=== PATIENT | female | born 1970 | race Caucasian/White ===

== ENCOUNTER → 2018-06-06 08:41 | Outpatient (CLI) | payer OTHER, SELFPAY ==
[2018-06-06 09:44] LABS: Add Manual Diff / Slide Review NO; Basophils Percent Auto 0.2 % (0-2); Eosinophils Percent Auto 1.5 % (2-4); Hematocrit 41.1 % (36-46); Hemoglobin 13.9 g/dL (12.0-16.0); Lymphocytes Percent Auto 24.7 % (25-40); Mean Corpuscular HGB Conc 33.8 % (30-36); Mean Corpuscular Hemoglobin 31.5 PG (26-34); Mean Corpuscular Volume 92.9 fL (80-100); Monocytes Percent Auto 9.7 % (3-14); Neutrophils Absolute Auto 4700 /uL (3000-5900); Neutrophils Percent Auto 63.9 % (50-75); Platelet Count 281 X10^3/uL (150-400); Red Blood Cell Count 4.42 X10^6/uL (4.0-5.2); Red Cell Distribution Width 14.4 % (11.6-14.8); White Blood Cell Count 7.3 X10^3/uL (4.5-11.0)
[2018-06-06 10:13] LABS: Cholesterol 198 mg/dL (140-199); HDL Cholesterol 46 mg/dL (40-60); LDL Cholesterol Calculated 122 mg/dL (<100); Triglycerides 148 mg/dL (35-150)
[2018-06-06 10:44] LABS: Thyroid Stimulating Hormone 1.27 uIU/mL (0.47-4.68)
== END ==
PROVIDERS: PCP Family Medicine; Visit Provider Family Medicine
DX: Z13.220 Encounter for screening for lipoid disorders (principal); Z51.81 Encounter for therapeutic drug level monitoring
CPT/HCPCS: 36415; 80061; 84443; 85025

== ENCOUNTER → 2019-01-26 06:49 | Outpatient (CLI) | payer OTHER, SELFPAY ==
[2019-01-26 08:51] LABS: Appearance Urine UA CLEAR; Bilirubin Urine UA NEGATIVE (NEGATIVE); Color Urine UA YELLOW; Glucose Urine UA NEGATIVE (Negative); Ketones Urine UA NEGATIVE (NEGATIVE); Leukocyte Esterase Urine UA NEGATIVE (NEGATIVE); Nitrite Urine UA NEGATIVE (Negative); Occult Blood Urine UA TRACE-LYSED (Negative); Protein Urine UA NEGATIVE (Negative); Specific Gravity Urine UA 1.025 (1.000-1.035); Urobilinogen Urine UA 0.2 E.U./dL (0.2)
[2019-01-26 08:52] LABS: Add Manual Diff / Slide Review NO; Basophils Absolute Auto 0 /uL (0-100); Basophils Percent Auto 0.2 % (0-2); Eosinophils Absolute Auto 100 /uL (0-450); Hematocrit 40.9 % (36-46); Hemoglobin 13.8 g/dL (12.0-16.0); Lymphocytes Absolute Auto 2600 /uL (1100-4500); Lymphocytes Percent Auto 30.6 % (25-40); Mean Corpuscular HGB Conc 33.7 % (30-36); Monocytes Absolute Auto 900 /uL (0-900); Monocytes Percent Auto 10.2 % (3-14); Neutrophils Absolute Auto 4900 /uL (1500-7000); Platelet Count 240 X10^3/uL (150-400); Red Blood Cell Count 4.45 X10^6/uL (4.0-5.2); Red Cell Distribution Width 14.3 % (11.6-14.8); White Blood Cell Count 8.5 X10^3/uL (4.5-11.0)
[2019-01-26 09:11] LABS: Alanine Aminotransferase 28 IU/L (9-52); Albumin 4.4 g/dL (3.5-5.0); Albumin Globulin Ratio 1.4 (1.0-2.8); Alkaline Phosphatase 58 U/L (38-126); Aspartate Aminotransferase 18 IU/L (14-36); Bilirubin Total 0.5 mg/dL (0.2-1.3); Blood Urea Nitrogen 12 mg/dL (7-17); Calcium 9.1 mg/dL (8.4-10.2); Carbon Dioxide 25 mmol/L (22-32); Chloride 101 mmol/L (98-107); Cholesterol 204 mg/dL (140-199); Estimated Glomerular Filt Rate > 60.0 mL/min (>60); Globulin 3.1 g/dL (1.7-4.1); Glucose 98 mg/dL (70-100); HDL Cholesterol 40 mg/dL (40-60); HEMOLYSIS 18 (0-50); LDL Cholesterol Calculated 136 mg/dL (<100); Potassium 3.8 mmol/L (3.4-5.1); Sodium 137 mmol/L (137-145); Total Protein 7.5 g/dL (6.3-8.2); Triglycerides 142 mg/dL (35-150)
[2019-01-26 09:37] LABS: Thyroid Stimulating Hormone 2.57 uIU/mL (0.47-4.68)
== END ==
PROVIDERS: PCP Family Medicine; Visit Provider Family Medicine
DX: G25.81 Restless legs syndrome (principal); K21.9 Gastro-esophageal reflux disease without esophagitis; Z51.81 Encounter for therapeutic drug level monitoring
CPT/HCPCS: 36415; 80053; 80061; 81003; 84443; 85025

== ENCOUNTER → 2019-01-31 08:10 | Outpatient (CLI) | payer OTHER, SELFPAY | PROVIDERS: PCP Family Medicine; Visit Provider Physician Assistant | DX: R68.89 Other general symptoms and signs (principal) | CPT/HCPCS: 87400 ==

== ENCOUNTER → 2019-03-06 11:07 | Outpatient (CLI) | payer OTHER, SELFPAY ==
[2019-03-06 14:48] LABS: Alanine Aminotransferase 25 IU/L (9-52); Albumin 4.2 g/dL (3.5-5.0); Albumin Globulin Ratio 1.6 (1.0-2.8); Alkaline Phosphatase 65 U/L (38-126); Aspartate Aminotransferase 15 IU/L (14-36); Bilirubin Total 0.2 mg/dL (0.2-1.3); Bilirubin Unconjugated 0.2 mg/dL (0.0-1.1); Globulin 2.7 g/dL (1.7-4.1); HEMOLYSIS < 15 (0-50); Total Protein 6.9 g/dL (6.3-8.2)
== END ==
PROVIDERS: PCP Family Medicine; Visit Provider Family Medicine
DX: B35.1 Tinea unguium (principal); Z51.81 Encounter for therapeutic drug level monitoring
CPT/HCPCS: 36415; 80076

== ENCOUNTER 2019-04-04 11:15 | Outpatient (RCR) | payer OTHER, SELFPAY ==
--- NOTE | 2019-03-22 16:58 | PT.OIE ---
Current Diagnoses Pain in left hip (03/22/19) Stiffness of unspecified joint, not elsewhere classified (03/22/19) Muscle weakness (generalized) (03/22/19) Other bursitis of hip, left hip (03/22/19) Past Medical History (Last Reviewed 05/17/18 @ 09:28 by Rylee Reynoso DO) GERD (gastroesophageal reflux disease) (Chronic Unknown) Restless leg syndrome (Chronic Unknown) Provider Visit Care Team Role Provider Type Rylee Reynoso DO Attending Provider Physician Primary Care Provider Specialty: [facility] Practice Address: [address] [place] [address] Email: [email or web address] Physical Therapy Initial Evaluation PT-OP-A Visit Information Start: 03/22/19 16:28 Freq: Status: Active Protocol: Document 03/22/19 12:00 DCW (Rec: 03/22/19 16:57 DCW [id number]) Out-Patient Physical Therapy Visit Information Visit Information Visit Type Initial Evaluation Visit Start Time 12:00 Visit Stop Time 12:45 Total Visit Minutes 45 Visit Number 1 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 Pt reports that her pain has been worsening, especially over the last six months. Pt reports she works at the [email or web address], and has to stand for the majority of her 8 hour shift. Pt notes that after >5 hours, she is in severe pain and has difficulty moving after work. Pt also notes that actions such as standing up out of a chair following a movie is difficult. Pt reports she frequently visits a chiropractor, which seems to help for an hour or two, but then her pain returns. Treatment Goals Patient/Caregiver Goals I want to not have pain, but also my doctor said I needed to do therapy before I could have an MRI. Prior Functional Status Baseline Function- ADL's Independent Baseline Function- Mobility Independent Current Functional Impairments (Reported) Functional Limitations- Work/School Pain limits pt from standing at work >5 hours Functional Limitations- Recreation/ Difficulty going to movies Hobbies because she struggles to get out of the chair afterward. PT-OP-C Subjective Start: 03/22/19 16:28 Freq: Status: Active Protocol: Document 03/22/19 12:00 DCW (Rec: 03/22/19 16:57 DCW [id number]) OP-PT Subjective Patient Comments Patient Comments It seems like it has been getting worse over the past six months. Patient Reported Progress Worse Patient Questionnaires Lower Extremity Functional Scale LEFS Score 38/80 = 47.5% LEFS Impairment 40 to 59% Impaired (Score 32- 47) OP-PT Pain Assessment Pain Assessment Grid Paper Pain Assessment Grid Completed Yes Location Left Lateral Hip Intensity 7 Scale Used Numeric (1 - 10) Description Sharp Stabbing PT-OP-F Manual Assessment Start: 03/22/19 16:28 Freq: Status: Active Protocol: Document 03/22/19 12:00 DCW (Rec: 03/22/19 16:57 DCW [id number]) Manual Assessments Soft Tissue Assessment Soft Tissue Mobility Assessment Point specific tenderness to palpation 3/4 = Wincing and withdraw at lateral hip/GT bursae Tenderness to palpation 2/4 = Pain with wincing along entire length of ITB Moderate tone in left QL Joint Mobility Assessment Joint Mobility Assessment Lumbar vertebrae L1-5 moderate -severe hypomobility with P->A mobilization PT-OP-L Special Tests Start: 03/22/19 16:28 Freq: Status: Active Protocol: Document 03/22/19 12:00 DCW (Rec: 03/22/19 16:57 DCW [id number]) Special Tests Lumbar Spine Special Tests Standing Flexion Test Results All movement through hips Straight Leg Raise Test Results Limited secondary to HS tightness Comments 48? right, 34? left Compression Test Results Negative Slump Test Results Negative Hip Special Tests Piriformis Test Results Mild tightness/tenderness NAILA Test Results Positive L lateral hip pain Knee Special Tests Chio's Test Test Results Positive L PT-OP-M Strength Start: 03/22/19 16:28 Freq: Status: Active Protocol: Document 03/22/19 12:00 DCW (Rec: 03/22/19 16:57 [facility] [id number]) Hip Strength Hip Manual Muscle Testing Right Flexion (L2) 4+ Good+ Abduction 4 Good Adduction 4 Good External Rotation 4+ Good+ Internal Rotation 4+ Good+ Left Flexion (L2) 4+ Good+ Abduction 4- Good- Adduction 4 Good External Rotation 4+ Good+ Internal Rotation 4+ Good+ Knee Strength Knee Manual Muscle Testing Right Flexion (S2) 5 Normal Extension (L3) 5 Normal Left Flexion (S2) 4- Good- Extension (L3) 5 Normal PT-OP-Q Treatments Start: 03/22/19 16:28 Freq: Status: Active Protocol: Document 03/22/19 12:00 DCW (Rec: 03/22/19 16:57 [facility] [id number]) Therapeutic Exercises Sidelying Exercises Clamshell Sidelying Exercise Name Clamshell Side left Hip Abduction Sidelying Exercise Name Hip Abduction Side left Resistance 0# Sitting Exercises Lumbar flexion Sitting Exercise Name Seated lumbar flexion Comments focus on flexion of spine, not hips PT-OP-T Assessment and Plan Start: 03/22/19 16:28 Freq: Status: Active Protocol: Document 03/22/19 12:00 DCW (Rec: 03/22/19 16:57 [facility] [id number]) Physical Therapy Assessment Rehab Potential Rehabilitation Potential Good Evaluation Complexity Number of Personal Factors/Comorbidities 1-2 Number of Body Systems Impaired 3 Clinical Presentation at Evaluation Evolving Impairments Impairments Functional Activities Pain Posture ROM Soft Tissue Mobility Strength Tone Goals Four Impairment Hypomobility throughout lumbar vertebrae Skilled Nursing Goal (LTG) Pt lumbar vertebrae to exhibit WNL mobility with P->A mobilization LTG Duration 05/22/19 Three Impairment Hip weakness [employer] 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 Pt exhibits weakness in her left LE, especially left abduction, adduction, and knee flexion. Pt would likely benefit from LE strengthening to improve standing tolerance at work, manual therapy to decrease tone in her hip and low back, and modalities including ultrasound and Iontophoresis / c Dexamethasone to decrease inflammation. Physical Therapy Plan Frequency and Duration Frequency of Treatment 1x/Week Duration of Treatment 8 weeks Plan of Care Start Date 03/22/19 Plan of Care End Date 05/17/19 Therapeutic Interventions Therapeutic Interventions Aquatic Therapy Home Exercise Program Joint Mobilizations Manual Therapy Neuromuscular Re-education Patient/Caregiver Education Self-Care/Home Management Soft Tissue Mobilization Therapeutic Activities Therapeutic Exercises Modalities Cold Pack/Ice Massage Electric Stimulation Hot Packs Iontophoresis Ultrasound Other Therapeutic Interventions Iontophoresis /c Dexamethasone , 4 mg/mL Next Visit Focus/Plan Next Note Type Treatment Note Next Visit Plan STM, Hip strengthening, US, Ionto
--- NOTE | 2019-03-22 16:58 | PT.OPPOC ---
Current Diagnoses Pain in left hip (03/22/19) Stiffness of unspecified joint, not elsewhere classified (03/22/19) Muscle weakness (generalized) (03/22/19) Other bursitis of hip, left hip (03/22/19) Provider Visit Care Team Role Provider Type Rylee Reynoso DO Attending Provider Physician Primary Care Provider Specialty: Family Practice Address: [address] [place] [address], [facility] Email: [email or web address] Plan Of Care PT-OP-T Assessment and Plan Start: 03/22/19 16:28 Freq: Status: Active Protocol: Document 03/22/19 12:00 DCW (Rec: 03/22/19 16:57 DCW [id number]) Physical Therapy Assessment Rehab Potential Rehabilitation Potential Good Evaluation Complexity Number of Personal Factors/Comorbidities 1-2 Number of Body Systems Impaired 3 Clinical Presentation at Evaluation Evolving Impairments Impairments Functional Activities Pain Posture ROM Soft Tissue Mobility Strength Tone Goals Four Impairment Hypomobility throughout lumbar vertebrae Public Relations Director Goal (LTG) Pt lumbar vertebrae to exhibit WNL mobility with P->A mobilization LTG Duration 05/22/19 Three Impairment Hip weakness Public Relations Director Goal (LTG) left LE MMT to at least 4+/5 LTG Duration 05/22/19 Two Impairment Pt experiences pain at work after standing >5 hours Public Relations Director Goal (LTG) Pt to tolerate full 8 hours shift with no increased left hip pain LTG Duration 05/22/19 One Impairment Pt does not have an appropriate home exercise program Short Term Goal (STG) Pt to be independent and compliant with an appropriate HEP STG Duration 04/21/19 Assessment Summary Assessment Pt presents with signs and symptoms of ITB syndrome, GT bursitis, QL tightness, and lumbar hypomobility. Pt exhibits weakness in her left LE, especially left abduction, adduction, and knee flexion. Pt would likely benefit from LE strengthening to improve standing tolerance at work, manual therapy to decrease tone in her hip and low back, and modalities including ultrasound and Iontophoresis / c Dexamethasone to decrease inflammation. Physical Therapy Plan Frequency and Duration Frequency of Treatment 1x/Week Duration of Treatment 8 weeks Plan of Care Start Date 03/22/19 Plan of Care End Date 05/17/19 Therapeutic Interventions Therapeutic Interventions Aquatic Therapy Home Exercise Program Joint Mobilizations Manual Therapy Neuromuscular Re-education Patient/Caregiver Education Self-Care/Home Management Soft Tissue Mobilization Therapeutic Activities Therapeutic Exercises Modalities Cold Pack/Ice Massage Electric Stimulation Hot Packs Iontophoresis Ultrasound Other Therapeutic Interventions Iontophoresis /c Dexamethasone , 4 mg/mL Next Visit Focus/Plan Next Note Type Treatment Note Next Visit Plan STM, Hip strengthening, US, Ionto Plan of Care Dates Plan of Care Start Date 03/22/19 Plan of Care End Date 05/17/19 Please Sign and Return: I have reviewed this Plan of Care and certify that the skilled therapy services above are required to meet the patient?s needs. Physician Signature Date Printed Name and Credentials Clinical Instructor Signature Printed Name and Credentials
--- NOTE | 2019-03-26 12:44 | PT.OTN ---
Current Diagnoses Pain in left hip (03/26/19) Physical Therapy Treatment Note PT-OP-A Visit Information Start: 03/22/19 16:28 Freq: Status: Active Protocol: Document 03/26/19 12:00 DCW (Rec: 03/26/19 12:44 DCW [id number]) Out-Patient Physical Therapy Visit Information Visit Information Visit Type Treatment Note Visit Start Time 12:00 Visit Stop Time 12:45 Total Visit Minutes 45 Visit Number 2 Number of PAI GOW DEALER Visits 0 Evaluation Information Evaluation Date 03/22/19 PT-OP-B Current Condition Start: 03/22/19 16:28 Freq: Status: Active Protocol: Document 03/22/19 12:00 DCW (Rec: 03/22/19 16:57 DCW [id number]) Current Condition History of Current Condition Onset Date 3 years Current Complaints worsening left hip and low back pain, muscle tweaks History of Current Condition Pt is a 49 year old female presenting with a three year history of left lateral hip and low back pain. Pt reports that her pain has been worsening, especially over the last six months. Pt reports she works at the [employer], and has to stand for the majority of her 8 hour shift. Pt notes that after >5 hours, she is in severe pain and has difficulty moving after work. Pt also notes that actions such as standing up out of a chair following a movie is difficult. Pt reports she frequently visits a chiropractor, which seems to help for an hour or two, but then her pain returns. Treatment Goals Patient/Caregiver Goals I want to not have pain, but also my doctor said I needed to do therapy before I could have an MRI. Prior Functional Status Baseline Function- ADL's Independent Baseline Function- Mobility Independent Current Functional Impairments (Reported) Functional Limitations- Work/School Pain limits pt from standing at work >5 hours Functional Limitations- Recreation/ Difficulty going to movies Hobbies because she struggles to get out of the chair afterward. PT-OP-C Subjective Start: 03/22/19 16:28 Freq: Status: Active Protocol: Document 03/26/19 12:00 DCW (Rec: 03/26/19 12:44 DCW [id number]) OP-PT Subjective Patient Comments Patient Comments After I saw you, it actually started to hurt a little less, but then last night at work, it just 'boom,' came back and hit me hard, I couldn't even bend over to pick anything up. PT-OP-F Manual Assessment Start: 03/22/19 16:28 Freq: Status: Active Protocol: Document 03/22/19 12:00 DCW (Rec: 03/22/19 16:57 DCW [id number]) Manual Assessments Soft Tissue Assessment Soft Tissue Mobility Assessment Point specific tenderness to palpation 3/4 = Wincing and withdraw at lateral hip/GT bursae Tenderness to palpation 2/4 = Pain with wincing along entire length of ITB Moderate tone in left QL Joint Mobility Assessment Joint Mobility Assessment Lumbar vertebrae L1-5 moderate -severe hypomobility with P->A mobilization PT-OP-L Special Tests Start: 03/22/19 16:28 Freq: Status: Active Protocol: Document 03/22/19 12:00 DCW (Rec: 03/22/19 16:57 DCW [id number]) Special Tests Lumbar Spine Special Tests Standing Flexion Test Results All movement through hips Straight Leg Raise Test Results Limited secondary to HS tightness Comments 48? right, 34? left Compression Test Results Negative Slump Test Results Negative Hip Special Tests Piriformis Test Results Mild tightness/tenderness NAILA Test Results Positive L lateral hip pain Knee Special Tests Chio's Test Test Results Positive L PT-OP-M Strength Start: 03/22/19 16:28 Freq: Status: Active Protocol: Document 03/22/19 12:00 DCW (Rec: 03/22/19 16:57 DCW [id number]) Hip Strength Hip Manual Muscle Testing Right Flexion (L2) 4+ Good+ Abduction 4 Good Adduction 4 Good External Rotation 4+ Good+ Internal Rotation 4+ Good+ Left Flexion (L2) 4+ Good+ Abduction 4- Good- Adduction 4 Good External Rotation 4+ Good+ Internal Rotation 4+ Good+ Knee Strength Knee Manual Muscle Testing Right Flexion (S2) 5 Normal Extension (L3) 5 Normal Left Flexion (S2) 4- Good- Extension (L3) 5 Normal PT-OP-Q Treatments Start: 03/22/19 16:28 Freq: Status: Active Protocol: Document 03/26/19 12:00 DCW (Rec: 03/26/19 12:44 DCW [id number]) Cardio Equipment Recumbent Elliptical (Biodex) Duration (Minutes) 6 Resistance 5 Seat Position 9 Gym Equipment Shuttle Recovery Unilateral Squats Resistance 67# Shuttle Recovery Platform Stable Bilateral Squats Resistance 100# Shuttle Recovery Platform Stable Therapeutic Exercises Other Exercises Resisted Stepping Other Exercise Name Lateral, Forward, Backward Side bilateral Resistance Green Equipment Used T-band Manual Therapy Treatment Soft Tissue Mobilization Piriformis Body Location L Piriformis Mobilization Type Strumming Sustained Pressure Trigger Point Release Body Position Prone Paraspinals Body Location L Lumbar Paraspinals Mobilization Type Strumming Sustained Pressure Trigger Point Release Body Position Prone Quadratus Lumborum Body Location L QL Mobilization Type Strumming Sustained Pressure Trigger Point Release Body Position Prone Joint Mobilizations Lumbar Joint L1-5 Direction P->A Grade III Body Position Prone Manual Traction Lower Extremity Details Long-axis LE Traction Body Position Supine PT-OP-T Assessment and Plan Start: 03/22/19 16:28 Freq: Status: Active Protocol: Document 03/26/19 12:00 DCW (Rec: 03/26/19 12:44 DCW [id number]) Physical Therapy Assessment Impairments Impairments Functional Activities Pain Posture ROM Soft Tissue Mobility Strength Tone Goals Four Impairment Hypomobility throughout lumbar vertebrae Halfway Goal (LTG) Pt lumbar vertebrae to exhibit WNL mobility with P->A mobilization LTG Duration 05/22/19 Three Impairment Hip weakness Halfway Goal (LTG) left LE MMT to at least 4+/5 LTG Duration 05/22/19 Two Impairment Pt experiences pain at work after standing >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 Physical Therapy Plan Frequency and Duration Frequency of Treatment 1x/Week Duration of Treatment 8 weeks Plan of Care Start Date 03/22/19 Plan of Care End Date 05/17/19 Therapeutic Interventions Therapeutic Interventions Aquatic Therapy Home Exercise Program Joint Mobilizations Manual Therapy Neuromuscular Re-education Patient/Caregiver Education Self-Care/Home Management Soft Tissue Mobilization Therapeutic Activities Therapeutic Exercises Modalities Cold Pack/Ice Massage Electric Stimulation Hot Packs Iontophoresis Ultrasound Other Therapeutic Interventions Iontophoresis /c Dexamethasone , 4 mg/mL Next Visit Focus/Plan Next Note Type Treatment Note Next Visit Plan STM, Hip strengthening, US, Ionto
--- NOTE | 2019-04-04 11:57 | PT.OTN ---
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 Pt reports that her pain has been worsening, especially over the last six months. Pt reports she works at the [employer], and has to stand for the majority of her 8 hour shift. Pt notes that after >5 hours, she is in severe pain and has difficulty moving after work. Pt also notes that actions such as standing up out of a chair following a movie is difficult. Pt reports she frequently visits a chiropractor, which seems to help for an hour or two, but then her pain returns. Treatment Goals Patient/Caregiver Goals I want to not have pain, but also my doctor said I needed to do therapy before I could have an MRI. Prior Functional Status Baseline Function- ADL's Independent Baseline Function- Mobility Independent Current Functional Impairments (Reported) Functional Limitations- Work/School Pain limits pt from standing at work >5 hours Functional Limitations- Recreation/ Difficulty going to movies Hobbies because she struggles to get out of the chair afterward. PT-OP-C Subjective Start: 03/22/19 16:28 Freq: Status: Active Protocol: Document 04/04/19 11:15 DCW (Rec: 04/04/19 11:55 DCW [id number]) OP-PT Subjective Patient Comments Patient Comments Pt reports that by evening time following her last visit, she was fairly sore again. She is hoping to set up her MRI soon. PT-OP-F Manual Assessment Start: 03/22/19 16:28 Freq: Status: Active Protocol: Document 03/22/19 12:00 DCW (Rec: 03/22/19 16:57 DCW [id number]) Manual Assessments Soft Tissue Assessment Soft Tissue Mobility Assessment Point specific tenderness to palpation 3/4 = Wincing and withdraw at lateral hip/GT bursae Tenderness to palpation 2/4 = Pain with wincing along entire length of ITB Moderate tone in left QL Joint Mobility Assessment Joint Mobility Assessment Lumbar vertebrae L1-5 moderate -severe hypomobility with P->A mobilization PT-OP-L Special Tests Start: 03/22/19 16:28 Freq: Status: Active Protocol: Document 03/22/19 12:00 DCW (Rec: 03/22/19 16:57 DCW [id number]) Special Tests Lumbar Spine Special Tests Standing Flexion Test Results All movement through hips Straight Leg Raise Test Results Limited secondary to HS tightness Comments 48? right, 34? left Compression Test Results Negative Slump Test Results Negative Hip Special Tests Piriformis Test Results Mild tightness/tenderness NAILA Test Results Positive L lateral hip pain Knee Special Tests Chio's Test Test Results Positive L PT-OP-M Strength Start: 03/22/19 16:28 Freq: Status: Active Protocol: Document 03/22/19 12:00 DCW (Rec: 03/22/19 16:57 DCW [id number]) Hip Strength Hip Manual Muscle Testing Right Flexion (L2) 4+ Good+ Abduction 4 Good Adduction 4 Good External Rotation 4+ Good+ Internal Rotation 4+ Good+ Left Flexion (L2) 4+ Good+ Abduction 4- Good- Adduction 4 Good External Rotation 4+ Good+ Internal Rotation 4+ Good+ Knee Strength Knee Manual Muscle Testing Right Flexion (S2) 5 Normal Extension (L3) 5 Normal Left Flexion (S2) 4- Good- Extension (L3) 5 Normal PT-OP-Q Treatments Start: 03/22/19 16:28 Freq: Status: Active Protocol: Document 04/04/19 11:15 DCW (Rec: 04/04/19 11:55 DCW [id number]) Cardio Equipment Recumbent Elliptical (Biodex) Duration (Minutes) 6 Resistance 5 Seat Position 9 Gym Equipment Shuttle Recovery Unilateral Squats Resistance 67# Shuttle Recovery Platform Stable Bilateral Squats Resistance 100# Shuttle Recovery Platform Stable Therapeutic Exercises Supine Exercises Piriformis Stretch Supine Exercise Name Figure-4, Zjxb-py-boarorfh shoulder Side bilateral Comments Manual Hamstring Stretch Supine Exercise Name HS Stretch Side bilateral Comments Manual Manual Therapy Treatment Soft Tissue Mobilization Piriformis Body Location L Piriformis Mobilization Type Strumming Sustained Pressure Trigger Point Release Body Position Prone Paraspinals Body Location L Lumbar Paraspinals Mobilization Type Strumming Sustained Pressure Trigger Point Release Body Position Prone Quadratus Lumborum Body Location L QL Mobilization Type Strumming Sustained Pressure Trigger Point Release Body Position Prone Joint Mobilizations Lumbar Joint L1-5 Direction P->A Grade III Body Position Prone Manual Traction Lower Extremity Details Long-axis LE Traction Body Position Supine PT-OP-R Modalities Start: 04/04/19 11:55 Freq: Status: Active Protocol: Document 04/04/19 11:15 DCW (Rec: 04/04/19 11:56 DCW [id number]) Iontophoresis Treatment Left GT Bursae Treatment Medication Dexamethasone (-) Medication Amount (mL) (ml) 1.0 Medication Dosage 4 mg/mL Treatment Polarity Negative to Negative PT-OP-T Assessment and Plan Start: 03/22/19 16:28 Freq: Status: Active Protocol: Document 04/04/19 11:15 DCW (Rec: 04/04/19 11:55 DCW [id number]) Physical Therapy Assessment Impairments Impairments Functional Activities Pain Posture ROM Soft Tissue Mobility Strength Tone Goals Four Impairment Hypomobility throughout lumbar vertebrae [employer] Goal (LTG) Pt lumbar vertebrae to exhibit WNL mobility with P->A mobilization LTG Duration 05/22/19 Three Impairment Hip weakness Nursing Home Goal (LTG) left LE MMT to at least 4+/5 LTG Duration 05/22/19 Two Impairment Pt experiences pain at work after standing >5 hours Nursing Home Goal (LTG) Pt to tolerate full 8 hours shift with no increased left hip pain LTG Duration 05/22/19 One Impairment Pt does not have an appropriate home exercise program Short Term Goal (STG) Pt to be independent and compliant with an appropriate HEP STG Duration 04/21/19 Assessment Summary Assessment Trial of Ionto today,assess next visit. Pt appeared to experience increased tenderness today during piriformis STM. Physical Therapy Plan Frequency and Duration Frequency of Treatment 1x/Week Duration of Treatment 8 weeks Plan of Care Start Date 03/22/19 Plan of Care End Date 05/17/19 Therapeutic Interventions Therapeutic Interventions Aquatic Therapy Home Exercise Program Joint Mobilizations Manual Therapy Neuromuscular Re-education Patient/Caregiver Education Self-Care/Home Management Soft Tissue Mobilization Therapeutic Activities Therapeutic Exercises Modalities Cold Pack/Ice Massage Electric Stimulation Hot Packs Iontophoresis Ultrasound Other Therapeutic Interventions Iontophoresis /c Dexamethasone , 4 mg/mL Next Visit Focus/Plan Next Note Type Treatment Note Next Visit Plan STM, Hip strengthening, US, Ionto
--- NOTE | 2019-07-18 14:04 | PT.OPDS ---
Current Diagnoses Pain in left hip (04/04/19) Provider Visit Care Team Role Provider Type Rylee Reynoso DO Attending Provider Physician Primary Care Provider Specialty: [facility] Address: [address] [place] [address], [address], [place], [address] Email: [email or web address] Visit Number Visit Number 3 Discharge Summary PT-OP-B Current Condition Start: 03/22/19 16:28 Freq: Status: Active Protocol: Document 03/22/19 12:00 DCW (Rec: 03/22/19 16:57 DCW [id number]) Current Condition History of Current Condition Onset Date 3 years Current Complaints worsening left hip and low back pain, muscle tweaks History of Current Condition Pt is a 49 year old female presenting with a three year history of left lateral hip and low back pain. Pt reports that her pain has been worsening, especially over the last six months. Pt reports she works at the [employer], and has to stand for the majority of her 8 hour shift. Pt notes that after >5 hours, she is in severe pain and has difficulty moving after work. Pt also notes that actions such as standing up out of a chair following a movie is difficult. Pt reports she frequently visits a chiropractor, which seems to help for an hour or two, but then her pain returns. Treatment Goals Patient/Caregiver Goals I want to not have pain, but also my doctor said I needed to do therapy before I could have an MRI. Prior Functional Status Baseline Function- ADL's Independent Baseline Function- Mobility Independent Current Functional Impairments (Reported) Functional Limitations- Work/School Pain limits pt from standing at work >5 hours Functional Limitations- Recreation/ Difficulty going to movies Hobbies because she struggles to get out of the chair afterward. PT-OP-C Subjective Start: 03/22/19 16:28 Freq: Status: Active Protocol: Document 04/04/19 11:15 DCW (Rec: 04/04/19 11:55 DCW [id number]) OP-PT Subjective Patient Comments Patient Comments Pt reports that by evening time following her last visit, she was fairly sore again. She is hoping to set up her MRI soon. PT-OP-F Manual Assessment Start: 03/22/19 16:28 Freq: Status: Active Protocol: Document 03/22/19 12:00 DCW (Rec: 03/22/19 16:57 [facility] [id number]) Manual Assessments Soft Tissue Assessment Soft Tissue Mobility Assessment Point specific tenderness to palpation 3/4 = Wincing and withdraw at lateral hip/GT bursae Tenderness to palpation 2/4 = Pain with wincing along entire length of ITB Moderate tone in left QL Joint Mobility Assessment Joint Mobility Assessment Lumbar vertebrae L1-5 moderate -severe hypomobility with P->A mobilization PT-OP-L Special Tests Start: 03/22/19 16:28 Freq: Status: Active Protocol: Document 03/22/19 12:00 DCW (Rec: 03/22/19 16:57 [facility] [id number]) Special Tests Lumbar Spine Special Tests Standing Flexion Test Results All movement through hips Straight Leg Raise Test Results Limited secondary to HS tightness Comments 48? right, 34? left Compression Test Results Negative Slump Test Results Negative Hip Special Tests Piriformis Test Results Mild tightness/tenderness NAILA Test Results Positive L lateral hip pain Knee Special Tests Chio's Test Test Results Positive L PT-OP-M Strength Start: 03/22/19 16:28 Freq: Status: Active Protocol: Document 03/22/19 12:00 DCW (Rec: 03/22/19 16:57 [facility] [id number]) Hip Strength Hip Manual Muscle Testing Right Flexion (L2) 4+ Good+ Abduction 4 Good Adduction 4 Good External Rotation 4+ Good+ Internal Rotation 4+ Good+ Left Flexion (L2) 4+ Good+ Abduction 4- Good- Adduction 4 Good External Rotation 4+ Good+ Internal Rotation 4+ Good+ Knee Strength Knee Manual Muscle Testing Right Flexion (S2) 5 Normal Extension (L3) 5 Normal Left Flexion (S2) 4- Good- Extension (L3) 5 Normal PT-OP-T Assessment and Plan Start: 03/22/19 16:28 Freq: Status: Active Protocol: Document 07/18/19 14:01 DCW (Rec: 07/18/19 14:04 [facility] [id number]) Physical Therapy Assessment Impairments Impairments Functional Activities Pain Posture ROM Soft Tissue Mobility Strength Tone Goals Four Impairment Hypomobility throughout lumbar vertebrae Custodial Goal (LTG) Pt lumbar vertebrae to exhibit WNL mobility with P->A mobilization LTG Duration 05/22/19 Three Impairment Hip weakness [employer] Goal (LTG) left LE MMT to at least 4+/5 LTG Duration 05/22/19 Two Impairment Pt experiences pain at work after standing >5 hours [employer] Goal (LTG) Pt to tolerate full 8 hours shift with no increased left hip pain LTG Duration 05/22/19 One Impairment Pt does not have an appropriate home exercise program Short Term Goal (STG) Pt to be independent and compliant with an appropriate HEP STG Duration 04/21/19 Assessment Summary Assessment Pt has not been seen in skilled therapy for three months. Pt will be discharged from skilled PT at this time, and will require a new referral in order to return Physical Therapy Plan Frequency and Duration Frequency of Treatment 1x/Week Duration of Treatment 8 weeks Plan of Care Start Date 03/22/19 Plan of Care End Date 05/17/19 Therapeutic Interventions Therapeutic Interventions Aquatic Therapy Home Exercise Program Joint Mobilizations Manual Therapy Neuromuscular Re-education Patient/Caregiver Education Self-Care/Home Management Soft Tissue Mobilization Therapeutic Activities Therapeutic Exercises Modalities Cold Pack/Ice Massage Electric Stimulation Hot Packs Iontophoresis Ultrasound Other Therapeutic Interventions Iontophoresis /c Dexamethasone , 4 mg/mL Next Visit Focus/Plan Next Note Type Treatment Note Next Visit Plan STM, Hip strengthening, US, Ionto
== END 2019-07-20 10:05 | disposition home or self-care (01) ==
LOC: PHYS 11:15
PROVIDERS: PCP Family Medicine; Visit Provider Family Medicine
DX: M25.552 Pain in left hip (principal)
CPT/HCPCS: 97110; 97140; 97162

== ENCOUNTER → 2019-04-10 10:05 | Outpatient (CLI) | payer OTHER, SELFPAY ==
--- NOTE | 2019-04-10 10:08 | DI.RAD.S_ITS ---
PROCEDURE: XR HIP W PEL IF DONE LT 2V INDICATIONS: L hip pain TECHNIQUE: AP pelvis with lateral view(s) of the left hip(s). COMPARISON: None. FINDINGS: Bones: No fractures or dislocations. Pelvic ring appears intact. No suspicious bony lesions. Lower lumbar spondylosis. Hip joint space is grossly preserved. Scattered degenerative subchondral sclerosis and spurring. Soft tissues: The visualized bowel gas pattern is normal. No suspicious soft tissue calcifications. IMPRESSION: Mild bilateral hip joint degeneration Dictated by: Mikael Sun M.D. on 04/10/2019 at 13:00 Approved by: Mikael Sun M.D. on 04/10/2019 at 13:03
[2019-04-10 10:48] LABS: Add Manual Diff / Slide Review NO; Basophils Absolute Auto 0 /uL (0-100); Basophils Percent Auto 0.3 % (0-2); Eosinophils Absolute Auto 100 /uL (0-450); Eosinophils Percent Auto 0.9 % (2-4); Hematocrit 39.2 % (36-46); Hemoglobin 13.1 g/dL (12.0-16.0); Lymphocytes Absolute Auto 1400 /uL (1100-4500); Lymphocytes Percent Auto 17.7 % (25-40); Mean Corpuscular HGB Conc 33.5 % (30-36); Mean Corpuscular Hemoglobin 30.3 PG (26-34); Mean Corpuscular Volume 90.6 fL (80-100); Monocytes Absolute Auto 800 /uL (0-900); Monocytes Percent Auto 9.8 % (3-14); Neutrophils Absolute Auto 5600 /uL (1500-7000); Neutrophils Percent Auto 71.3 % (50-75); Platelet Count 250 X10^3/uL (150-400); Red Blood Cell Count 4.33 X10^6/uL (4.0-5.2); Red Cell Distribution Width 15.3 % (11.6-14.8); White Blood Cell Count 7.8 X10^3/uL (4.5-11.0)
[2019-04-10 11:32] LABS: Erythrocyte Sedimentation Rate 16 MM/HR (0-20)
[2019-04-12 17:43] LABS: HLA B27 NEGATIVE (Negative)
[2019-04-12 19:55] LABS: ANA Pattern Speckled; ANA Screen, IFA Positive (Negative); ANA Titer 1:40 titer (<1:40)
== END ==
PROVIDERS: PCP Family Medicine; Visit Provider Family Medicine
DX: M25.552 Pain in left hip (principal); M16.0 Bilateral primary osteoarthritis of hip; B35.1 Tinea unguium; M54.16 Radiculopathy, lumbar region
CPT/HCPCS: 36415; 73502; 85025; 85651; 86038; 86812

== ENCOUNTER → 2019-04-27 06:00 | Outpatient (CLI) | payer OTHER, SELFPAY ==
--- NOTE | 2019-04-27 06:03 | DI.MRI.S_ITS ---
PROCEDURE: MR LUMBAR SPINE WO CON INDICATIONS: L Hip pain, Lumbar radiculopathy TECHNIQUE: Noncontrast sagittal T1 spin echo and T2 fast echo, sagittal STIR, axial T1 and T2 fast spin echo through the lumbar spine. In cases with scoliosis, additional coronal T2 fast spin echo may be performed. COMPARISON: None. FINDINGS: Image quality: Excellent. Alignment and Curvature: There is normal bony alignment. Bone Marrow: Marrow is of normal overall signal. No acute vertebral body compression fractures. Spinal Cord: Conus medullaris terminates at the L1 level. Visualized cord demonstrates normal signal and size. Paraspinous Soft Tissues: No paravertebral masses. L1-L2: Normal appearance. L2-L3: Normal appearance except for a slight degree of degenerative disc I. reduction and desiccation and mild facet osteoarthritis.. L3-L4: The degenerative disc disease is minimal, no disc bulge or herniation is seen. Only a slight degree of facet osteoarthritis can be found. L4-L5: Minimal degenerative disc disease, mild to moderate facet osteoarthritis is greater on the left than the right with resultant mild narrowing of the neural foramen on the left to the degree that impingement on the course of the left L4 nerve root may be present. L5-S1: No degenerative disc disease, minimal facet osteoarthritis on the left. No definite nerve root impingement found.. IMPRESSION: There is only a mild degree of degenerative change along the lumbosacral spine best seen at the left-sided neural foramen at L4-5. No prior trauma is seen, no disc herniation is present. There is potential for mild impingement on the course of the left L4 nerve root. Dictated by: Sixto Barclay M.D. on 04/27/2019 at 13:23 Approved by: Sixto Barclay M.D. on 04/27/2019 at 13:26
--- NOTE | 2019-04-27 06:03 | DI.MRI.S_ITS ---
PROCEDURE: MR HIP LT WO CON INDICATIONS: L Hip pain, Lumbar radiculopathy TECHNIQUE: Noncontrast coronal T1 spin echo and STIR through the bony pelvis. Coronal and axial T2 fast spin echo with fat saturation, sagittal T1 spin echo, and oblique axial T2 fast spin echo with fat saturation through the hip. COMPARISON: [facility], MR, MR LUMBAR SPINE WO CON, 04/27/2019, 6:36. FINDINGS: Image quality: Excellent. Bones and joints: Bone marrow of the pelvic ring and proximal femurs show normal signal throughout. No intraosseous lesions or fractures. No avascular necrosis of the femoral heads. The visualized lower lumbar spine appears normally aligned. Tendons and ligaments: The gluteus medius and minimus tendons appear intact, without associated muscle atrophy. The nearby proximal iliotibial band also appears intact. The iliopsoas tendon appears intact, without adjacent bursal fluid collections or evidence for impingement syndrome. The origin of the hamstring tendon is intact at the ischial tuberosity, as well as the associated sacrotuberous ligament. The straight and reflected heads of the rectus femoris muscle origin appear intact, as well as the conjoint tendon. The ligamentum teres appears intact where visualized. Labrum and cartilage: The acetabular labrum appears intact in the absence of intra-articular contrast. Cartilage surface of the femoral head appears of normal thickness. The alpha angle of the femur is within normal limits at less than 55 degrees. Soft tissues: Visualized muscles demonstrate normal bulk and internal signal. Quadratus femoris muscle demonstrates no internal edema to suggest ischiofemoral impingement. The proximal sciatic neurovascular bundle appears normal adjacent to the hamstring tendons. No free pelvic fluid. Bladder wall thickness is normal. The uterus is only partially visualized but appears retroverted and leftward deviated against the lumbar plexus on the left. The morphology of the myometrium and endometrial lining is indistinct, and the appearance is suggestive of presence of at least 2 moderate sized uterine fibroids in the small portion of the uterus included on this study to the left of midline. An adnexal mass suggestive of ovarian neoplasm is not seen. Bowel structures and small bowel loops appear normal where visualized. IMPRESSION: The uterus is only partially included on this study and it appears leftward deviated posteriorly to do abut the left lateral pelvic sidewall in the area of the lumbosacral plexus. Impingement on this area may explain left-sided symptomatology. Only a portion of the pelvis is visualized, the endometrial lining is indistinct. Pelvic ultrasound is recommended in this patient who presumably is post menopausal. There is a small degree of thinning of the joint interspace bilaterally, symmetric. The symmetry of degenerative change further argues towards possible left-sided lumbosacral plexus impingement if the symptomatology is predominantly left-sided. Dictated by: Sixto Barclay M.D. on 04/27/2019 at 13:26 Approved by: Sixto Barclay M.D. on 04/27/2019 at 13:34
== END ==
PROVIDERS: PCP Family Medicine; Visit Provider Family Medicine
DX: M25.552 Pain in left hip (principal); M47.27 Other spondylosis with radiculopathy, lumbosacral region
CPT/HCPCS: 72148; 73721

== ENCOUNTER → 2019-05-02 10:40 | Outpatient (CLI) | payer OTHER, SELFPAY ==
--- NOTE | 2019-05-02 10:44 | DI.US.S_ITS ---
PROCEDURE: US PELVIC COMPLETE INDICATIONS: EVALUATE UTERUS; KNOWN FIBROIDS TECHNIQUE: Real-time scanning was performed of the pelvic organs, with image documentation. Additional endovaginal scanning was necessary due to incomplete visualization of the adnexal and endometrial structures by transabdominal scanning. COMPARISON: [facility], , PELVIC COMPLETE, 08/15/2017, 8:56. FINDINGS: Transabdominal scanning: Limited scanning through the kidneys shows no hydronephrosis. No pathologic free abdominal or pelvic fluid. Endovaginal scanning: Uterus: Uterus is moderately enlarged in size at 6.2 x 6.2 x 8.1 cm. The endometrium is difficult to accurately assess to multiple uterine fibroids this includes a right sided anterior intramural 4.6 cm fibroid, a midline anterior intramural 4.3 cm fibroid and a left-sided anterior intramural 2.5 cm maximal dimension fibroid. Ovaries: The right ovary is normal at 1.6 x 1.8 x 2.7 cm but the left ovary could not be seen due to bowel gas. IMPRESSION: Nonvisualization of the endometrial lining 2 scattered uterine fibroids, the largest of which measures up to 4.6 x 3.7 x 3.4 cm on the right. Right ovary appears normal, left ovary could not be seen likely due to overlying bowel gas and positioning. Dictated by: Sixto Barclay M.D. on 05/02/2019 at 12:06 Approved by: Sixto Barclay M.D. on 05/02/2019 at 12:09
== END ==
PROVIDERS: PCP Family Medicine; Visit Provider Family Medicine
DX: D25.1 Intramural leiomyoma of uterus (principal)
CPT/HCPCS: 76830; 76856

== ENCOUNTER → 2019-05-18 09:33 | Outpatient (CLI) | payer OTHER, SELFPAY ==
--- NOTE | 2019-05-18 09:34 | DI.MG.S_ITS ---
BILATERAL DIGITAL SCREENING MAMMOGRAM 3D/2D WITH CAD: 05/18/2019 CLINICAL: Routine screening. Comparison is made to exams dated: 10/13/2017 mammogram - [facility] and 09/14/2012 mammogram - [facility]. The tissue of both breasts is heterogeneously dense. This may lower the sensitivity of mammography. Current study was also evaluated with a Computer Aided Detection (CAD) system. No significant masses, calcifications, or other findings are seen in either breast. There has been no significant interval change. IMPRESSION: NEGATIVE There is no mammographic evidence of malignancy. A 1 year screening mammogram is recommended. This exam was interpreted at Station ID: [id number]. NOTE: For mammograms, a report in lay terms will be sent to the patient. Approximately 15% of breast malignancies will not be visualized mammographically. In the management of a palpable breast mass, a negative mammogram must not discourage biopsy of a clinically suspicious lesion. Electronically Signed By: Rodrigo liu/noble:05/18/2019 17:42:23 letter sent: Normal Exam ACR BI-RADS Category 1: Negative [id number]
== END ==
PROVIDERS: PCP Family Medicine; Visit Provider Family Medicine
DX: Z12.31 Encounter for screening mammogram for malignant neoplasm of breast (principal)
CPT/HCPCS: 77063; 77067

== ENCOUNTER → 2019-06-12 13:52 | Outpatient (CLI) | payer OTHER, SELFPAY ==
[2019-06-12 16:31] LABS: BUN Creatinine Ratio 26.7 (6-22); Blood Urea Nitrogen 16 mg/dL (7-17); Calcium 9.6 mg/dL (8.4-10.2); Carbon Dioxide 26 mmol/L (22-32); Chloride 103 mmol/L (98-107); Estimated Glomerular Filt Rate > 60.0 mL/min (>60); Glucose 100 mg/dL (70-100); HEMOLYSIS < 15 (0-50); Potassium 4.4 mmol/L (3.4-5.1); Sodium 139 mmol/L (137-145)
== END ==
PROVIDERS: PCP Family Medicine; Visit Provider Family Medicine
DX: Z51.81 Encounter for therapeutic drug level monitoring (principal)
CPT/HCPCS: 36415; 80048

== ENCOUNTER 2019-08-01 18:56 | Emergency (ER) | payer OTHER, SELFPAY ==
[2019-08-01 19:15] VITALS: BP 129/79; PULSE 80; RESP 18; TEMP 36.6; O2SAT 99; BMI 31.3
[2019-08-01] MEDS: SODIUM CHLORIDE 0.9% 1,000 ML 150 ML IV (20:45)
--- NOTE | 2019-08-01 20:46 | ED.DIZZY ---
HPI - Dizziness General Chief Complaint: Dizziness Stated Complaint: dizziness Time Seen by Provider: 08/01/19 20:00 Source: patient and family Mode of arrival: ambulatory Limitations: no limitations History of Present Illness HPI Narrative: 49-year-old female former smoker presents to the emergency department with her and a chief complaint of vague dizziness over the course of the day. She was working at the [employer] and states that upon standing she felt dizzy few hours ago and the symptoms persist. She denies any focal neurologic symptoms such as blurred vision, trouble with speech nor numbness, tingling or weakness. She denies any recent illness involving fever or chills nor runny nose, sneezing or coughing. She denies ear pain, chest pain or shortness of breath. She states she is dizzy upon standing and improves with rest. She states she has been very stressed lately due to home and work and does not think she has been eating well or drinking enough water. MD complaint: dizziness Onset (ago): hour(s) Timing: gradual onset Description: lightheadedness History of similar episodes: No History of trauma: No Severity: mild Relieving factors: remaining still Exacerbating factors: position Associated symptoms: denies other symptoms Related Data Previous Rx's Medication Instructions Recorded clobetasol 0.05 % scalp solution 0.05 % TOPICAL QHS #50 ml 05/17/18 fluocinolone 0.01 % topical body 118.28 applictn TOPICAL HS #4 oz 05/17/18 oil escitalopram oxalate 20 mg tablet 20 mg PO DAILY #90 tab 04/10/19 cyclobenzaprine 10 mg tablet 10 mg PO BEDTIME #30 tab 07/09/19 gabapentin 300 mg capsule 300 mg PO BEDTIME #90 cap 07/09/19 hydrocodone 10 mg-acetaminophen 1 tab PO QID PRN #120 tab 07/09/19 325 mg tablet Allergies Allergy/AdvReac Type Severity Reaction Status Date / Time No Known Drug Allergies Allergy Verified 07/09/19 09:02 Review of Systems Constitutional Constitutional: Denies chills, Denies fatigue, Denies fever(s), Denies frequent falls, Denies lethargy and Denies weakness Eyes Eyes: Denies change in vision, Denies eye discharge, Denies irritation and Denies loss of vision ENT Ears, Nose, Mouth, and Throat: Denies change in voice, Reports dizziness, Denies neck pain, Denies sore throat and Denies throat swelling Cardiovascular Cardiovascular: Denies chest pain, Denies irregular heart rhythm, Denies lightheadedness, Denies palpitations, Denies dyspnea, Denies dyspnea on exertion and Denies orthopnea Respiratory Respiratory: Denies cough, Denies dyspnea, Denies dyspnea on exertion and Denies wheezing Gastrointestinal Gastrointestinal: Denies abdominal pain, Denies change in bowel habits, Denies diarrhea, Denies nausea and Denies vomiting Genitourinary Genitourinary: Denies hematuria, Denies flank pain, Denies urinary incontinence and Denies urinary urgency Musculoskeletal Musculoskeletal: Denies back pain, Denies muscle weakness, Denies neck pain and Denies tingling Integumentary/Breasts Skin/Breast: Denies pruritus, Denies erythema, Denies rash and Denies wounds Neurologic Neurologic: Denies behavioral changes, Denies confusion, Reports dizziness, Denies frequent falls, Denies loss of vision, Denies tingling and Denies weakness Psychiatric Psychiatric: Denies anxiety, Denies behavioral changes, Denies confusion, Denies depression, Denies homicidal ideation and Denies suicidal ideation Endocrine Endocrine: Denies fatigue, Denies flushing and Denies palpitations Hematologic/Lymphatic Hematologic/Lymphatic: Denies easy bruising Allergic/Immunologic Allergic/Immunologic: Denies urticaria, Denies throat swelling and Denies wheezing [facility] Medical History GERD (gastroesophageal reflux disease) (Chronic Unknown) Restless leg syndrome (Chronic Unknown) Social History Smoking Status: Former smoker Social History Smoking Status: Former smoker Exam Narrative Exam Narrative: GENERAL: [] year old patient appears stated age. Well-nourished, well-developed patient, in mild distress. HEAD: Atraumatic. Normocephalic. EYES: Pupils equal round and reactive. Extraocular motions intact. No scleral icterus. No injection or drainage. ENT: Nose without bleeding, purulent drainage. Throat without erythema, tonsillar hypertrophy or exudate. Airway patent. NECK: Trachea midline. Non tender CARDIOVASCULAR: Regular rate and rhythm without murmurs, gallops, or rubs. RESPIRATORY: Clear to auscultation. Breath sounds equal bilaterally. No wheezes, rales, or rhonchi. GASTROINTESTINAL: Abdomen soft, non-tender, nondistended. EXTREMITIES: No edema or joint tenderness. BACK: Nontender without deformity or crepitance. No flank tenderness. NEURO: AOx3. SKIN: No rash or erythema of visible areas NIH Stroke Scale 1a. LOC: Patient is alert and keenly responsive (0) 1b. LOC Questions: Patient answers both LOC questions accurately (0) 1c. LOC Commands: Patient performs both tasks correctly (0) 2. Best Gaze: Normal (0) 3. Visual: No visual loss (0) 4. Facial palsy: Normal symmetrical movements (0) 5. Motor arm: No drift (0) 6. Motor leg: No drift (0) 7. Limb ataxia: Absent (0) 8. Sensory: Normal (0) 9. Best language: No aphasia; normal (0) 10. Dysarthria: Normal (0) 11. Extinction and inattention: No abnormality (0) NIHSS: 0 Initial Vital Signs Initial Vital Signs: Vital Signs Temperature 97.9 F 08/01/19 19:15 Pulse Rate 80 08/01/19 19:15 Respiratory Rate 18 08/01/19 19:15 Blood Pressure 129/79 08/01/19 19:15 Pulse Oximetry 99 08/01/19 19:15 Course Orders Ordered: ED Orders 08/01/19 20:20 EKG-12 Lead Stat 08/01/19 21:15 Complete Blood Count AUTO DIFF Stat Comprehensive Metabolic Panel Stat Partial Thromboplastin Time Stat Prothrombin Time INR Stat Troponin I Stat 08/01/19 21:46 CT head/brain wo con Stat Discontinued Medications Sodium Chloride (Normal Saline 0.9%) 1,000 mls @ 150 mls/hr IV CONT JUSTICE Last Infusion: 08/02/19 00:58 Dose: 0 mls/hr Documented by: Admin: 08/01/19 20:45 Dose: 150 mls/hr Documented by: EMANUEL Reevaluation(s) Reevaluation #1: Patient feels much better after above-stated therapies Vital Signs Vital signs: Vital Signs - 8 hr 08/01/19 21:43 08/01/19 22:30 08/01/19 23:29 Pulse Rate 72 76 83 Respiratory Rate 16 18 18 Blood Pressure [Left Arm] 122/75 119/57 L 136/66 Pulse Oximetry 99 97 100 08/02/19 00:25 Pulse Rate 79 Respiratory Rate 24 Blood Pressure [Left Arm] 113/52 L Pulse Oximetry 98 MDM - Dizziness Lab Data Result diagrams: 08/01/19 21:15 08/01/19 21:15 Labs: Lab Results 08/01/19 08/01/19 08/01/19 Range/Units 21:15 21:15 21:15 WBC 8.8 (4.5-11.0) X10^3/uL RBC 4.35 (4.0-5.2) X10^6/uL Hgb 13.4 (12.0-16.0) g/dL Hct 40.0 (36-46) % MCV 92.0 (80-100) fL MCH 30.7 (26-34) PG MCHC 33.4 (30-36) % RDW 14.7 (11.6-14.8) % Plt Count 287 (150-400) X10^3/uL Neut % (Auto) 62.1 (50-75) % Lymph % (Auto) 27.8 (25-40) % Esmeralda % (Auto) 9.8 (3-14) % Eos % (Auto) 0.0 L (2-4) % Baso % (Auto) 0.3 (0-2) % Neut # (Auto) 5500 (3866-2989) /uL Lymph # (Auto) 2400 (3507-3124) /uL Esmeralda # (Auto) 900 (0-900) /uL Eos # (Auto) 0 (0-450) /uL Baso # (Auto) 0 (0-100) /uL PT 11.2 (10.1-12.7) SECONDS INR 1.0 (0.9-1.3) APTT 34 (26.4-36.2) SECONDS Sodium 138 (137-145) mmol/L Potassium 4.0 (3.4-5.1) mmol/L Chloride 104 (98-107) mmol/L Carbon Dioxide 25 (22-32) mmol/L BUN 19 H (7-17) mg/dL Creatinine 0.50 L (0.52-1.04) mg/dL Estimated GFR > 60.0 (>60) mL/min BUN/Creatinine Ratio 38.0 H (6-22) Glucose 89 (70-100) mg/dL Calcium 9.2 (8.4-10.2) mg/dL Total Bilirubin 0.2 (0.2-1.3) mg/dL AST 20 (14-36) IU/L ALT 17 (9-52) IU/L Alkaline Phosphatase 74 (38-126) U/L Troponin I < 0.012 (0.01-0.034) ng/mL Total Protein 7.6 (6.3-8.2) g/dL Albumin 4.3 (3.5-5.0) g/dL Globulin 3.3 (1.7-4.1) g/dL Albumin/Globulin Ratio 1.3 (1.0-2.8) Urine Dip Bedside Urine Glucose Negative Bedside Urine Bilirubin - Negative Bedside Urine Ketone - Negative Urine Specific Mcgrath 1.015 Bedside Urine Occult Blood - Negative Bedside Urine pH 6 Bedside Urine Protein - Negative Bedside Urine Urobilinogen - Negative Bedside Urine Nitrite - Negative Bedside Urine Leukocytes - Negative Esterase MDM Narrative Medical decision making narrative: Multiple etiologies for patient's symptoms considered including: [stroke vs. dehydration vs. dietary change vs. new medications vs. other] Patient's symptoms improved or duration of stay with above-stated therapies. Findings and discharge diagnosis discussed with patient/family followed by verbalization of understanding Return precautions discussed with patient/family whom verbalize understanding. Discharge Plan Departure Patient Disposition: Home Clinical Impression: Dizziness Discharge Date/Time: 08/02/19 00:52 Instructions: DI for Dizziness-Nonvertigo Activity Restrictions/Additional Instructions: *You have been diagnosed with [dizziness] *What to do: *Take medications as directed *Follow up with your primary care provider in 2-3 days, call for an appointment. Let them know you were seen in the Emergency Department and that we ask that you be seen in follow up *Return to ER if you should have any new, worsening or concerning symptoms Prescriptions: No Action fluocinolone 0.01 % oil 118.28 applictn Topical HS Qty: 4 RF: 5 clobetasol 0.05 % solution 0.05 % Topical QHS Qty: 50 RF: 2 escitalopram oxalate [Lexapro] 20 mg tablet 20 mg PO DAILY Qty: 90 RF: 1 gabapentin 300 mg capsule 300 mg PO BEDTIME Qty: 90 RF: 0 hydrocodone-acetaminophen 10-325 mg tablet 1 tab PO QID PRN (Reason: pain) Qty: 120 RF: 0 cyclobenzaprine 10 mg tablet 10 mg PO BEDTIME Qty: 30 RF: 2 Referrals: Rylee Reynoso DO [Primary Care Provider] -
[2019-08-01 21:27] LABS: Add Manual Diff / Slide Review NO; Basophils Absolute Auto 0 /uL (0-100); Basophils Percent Auto 0.3 % (0-2); Eosinophils Absolute Auto 0 /uL (0-450); Hemoglobin 13.4 g/dL (12.0-16.0); Lymphocytes Absolute Auto 2400 /uL (1100-4500); Lymphocytes Percent Auto 27.8 % (25-40); Mean Corpuscular HGB Conc 33.4 % (30-36); Mean Corpuscular Hemoglobin 30.7 PG (26-34); Monocytes Absolute Auto 900 /uL (0-900); Monocytes Percent Auto 9.8 % (3-14); Neutrophils Absolute Auto 5500 /uL (1500-7000); Neutrophils Percent Auto 62.1 % (50-75); Platelet Count 287 X10^3/uL (150-400); Red Blood Cell Count 4.35 X10^6/uL (4.0-5.2); Red Cell Distribution Width 14.7 % (11.6-14.8); White Blood Cell Count 8.8 X10^3/uL (4.5-11.0)
[2019-08-01 21:32] LABS: Prothrombin Time 11.2 SECONDS (10.1-12.7)
[2019-08-01 21:34] LABS: PTT Partial Thromboplastin Tim 34 SECONDS (26.4-36.2)
[2019-08-01 21:36] LABS: Alanine Aminotransferase 17 IU/L (9-52); Albumin 4.3 g/dL (3.5-5.0); Albumin Globulin Ratio 1.3 (1.0-2.8); Alkaline Phosphatase 74 U/L (38-126); Aspartate Aminotransferase 20 IU/L (14-36); Bilirubin Total 0.2 mg/dL (0.2-1.3); Blood Urea Nitrogen 19 mg/dL (7-17); Calcium 9.2 mg/dL (8.4-10.2); Carbon Dioxide 25 mmol/L (22-32); Chloride 104 mmol/L (98-107); Estimated Glomerular Filt Rate > 60.0 mL/min (>60); Globulin 3.3 g/dL (1.7-4.1); Glucose 89 mg/dL (70-100); HEMOLYSIS < 15 (0-50); Sodium 138 mmol/L (137-145); Total Protein 7.6 g/dL (6.3-8.2)
[2019-08-01 21:43] VITALS: BP 122/75; PULSE 72; RESP 16; O2SAT 99
--- NOTE | 2019-08-01 21:46 | DI.CT.S_ITS ---
PROCEDURE: CT HEAD/BRAIN WO CON INDICATIONS: dizziness TECHNIQUE: Noncontrast 4.5 mm thick angled axial sections acquired from the foramen magnum to the vertex, with coronal and sagittal reformats. For radiation dose reduction, the following was used: automated exposure control, adjustment of mA and/or kV according to patient size. COMPARISON: None. FINDINGS: Image quality: Excellent. CSF spaces: Basal cisterns are patent. No extra-axial fluid collections. Ventricles are normal in size and shape. Brain: No midline shift. No intracranial masses or hemorrhage. Cameron-white matter interface is normal. Skull and face: Calvarium and visualized facial bones are intact, without suspicious lesions. Sinuses: Visualized sinuses and mastoids are clear. IMPRESSION: No acute intracranial disease process. Dictated by: Jerrica Delgado MD, PhD on 08/02/2019 at 7:23 Approved by: Jerrica Delgado MD, PhD on 08/02/2019 at 7:23
[2019-08-01 21:48] LABS: Troponin I < 0.012 ng/mL (0.01-0.034)
[2019-08-01 22:30] VITALS: BP 119/57; PULSE 76; RESP 18; O2SAT 97
[2019-08-01 23:29] VITALS: BP 136/66; PULSE 83; RESP 18; O2SAT 100
[2019-08-02 00:25] VITALS: BP 113/52; PULSE 79; RESP 24; O2SAT 98
== END 2019-08-02 00:52 | disposition home or self-care (01) ==
PROVIDERS: Emergency Provider Emergency Medicine; PCP Family Medicine
DX: R42 Dizziness and giddiness (principal)
CPT/HCPCS: 36415; 70450; 80053; 81003; 84484; 85025; 85610; 85730; 93005; 96360; 96361; 99284; 99285

== ENCOUNTER 2019-09-12 10:15 | Outpatient (RCR) | payer OTHER, SELFPAY ==
--- NOTE | 2019-07-19 09:48 | PT.OPPOC ---
Current Diagnoses Spondylosis without myelopathy or radiculopathy, lumbar region (07/19/19) Lumbago with sciatica, left side (07/19/19) Trochanteric bursitis, right hip (07/19/19) Fibromyalgia (07/19/19) Weakness (07/19/19) Provider Visit Care Team Role Provider Type Rylee Reynoso DO Primary Care Provider Physician Specialty: Family Practice Address: [address] [place] [address], [address], [address] Email: [email or web address] Jonathan Caruso MD Attending Provider Physician Specialty: Physical Medicine and Rehab Address: [address] [place] [address], [id number] Email: Plan Of Care PT-OP-T Assessment and Plan Start: 07/19/19 09:47 Freq: Status: Active Protocol: Document 07/19/19 09:48 CINDY (Rec: 07/19/19 12:01 SAK [id number]) Physical Therapy Assessment Rehab Potential Rehabilitation Potential Good Evaluation Complexity Number of Personal Factors/Comorbidities 3 or More Number of Body Systems Impaired 3 Clinical Presentation at Evaluation Evolving Impairments Impairments Activity Tolerance Pain Strength Goals Four Impairment Oswestry disability index score 54% Short Term Goal (STG) Decrease Owestry Disability index score to no greater than 40% STG Duration 08/18/19 Tray Line Supervisor Goal (LTG) Decrease Oswestry disability index score to no greater than 25% LTG Duration 09/16/19 Three Impairment core and hip weakness with poor dynamic lumbar stabilization Short Term Goal (STG) Patient to be independent and compliant with HEP to address above impairments STG Duration 08/18/19 Halfway Goal (LTG) Patient to demonstrate improvement in muscle strength to at least 4+/5 and demonstrate appropriate lumbar stabilization ability statically and dynamically with functional activities. LTG Duration 09/16/19 Two Impairment Pt experiences pain at work after standing >5 hours Short Term Goal (STG) Patient able to tolerate standing for 4 hours without an increase in pain STG Duration 08/18/19 Halfway Goal (LTG) Pt to tolerate full 8 hours shift with no increase in pain LTG Duration 09/16/19 One Impairment Poor tolerance for HEP, has not done aquatic exercise Short Term Goal (STG) Patient able to tolerate 45 min aquatic exercise program without an increase in pain STG Duration 08/18/19 Halfway Goal (LTG) Patient to be independent and compliant with independent aquatic exercise program LTG Duration 09/16/19 Assessment Summary Assessment Patient presents with pain throughout her low back, bilateral hips, and right shoulder. Recent diagnosis of fibromyalgia. Patient has a job which requires her to stand which is very painful. She presents with muscle imbalances including weakness and soft tissue tightness in lumbar spine and bilateral hips, pain with most movements in these areas as well as right shoulder. Feel she would benefit from physical therapy, especially aquatic therapy to address these impairments and help return her to a more active lifestyle with less pain and allow her to tolerate her work day more easily. Physical Therapy Plan Frequency and Duration Frequency of Treatment 2x/Week Duration of Treatment 8 wks Plan of Care Start Date 07/19/19 Plan of Care End Date 10/17/19 Therapeutic Interventions Therapeutic Interventions Aquatic Therapy Home Exercise Program Manual Therapy Neuromuscular Re-education Patient/Caregiver Education Self-Care/Home Management Soft Tissue Mobilization Taping Therapeutic Activities Therapeutic Exercises Modalities Hot Packs Ultrasound Next Visit Focus/Plan Next Note Type Treatment Note Next Visit Plan Initiate aquatic therapy. Plan of Care Dates Plan of Care Start Date 07/19/19 Plan of Care End Date 10/17/19 Please Sign and Return: I have reviewed this Plan of Care and certify that the skilled therapy services above are required to meet the patient?s needs. Physician Signature Date Printed Name and Credentials Clinical Instructor Signature Printed Name and Credentials
--- NOTE | 2019-07-19 09:48 | PT.OIE ---
Current Diagnoses Spondylosis without myelopathy or radiculopathy, lumbar region (07/19/19) Lumbago with sciatica, left side (07/19/19) Trochanteric bursitis, right hip (07/19/19) Fibromyalgia (07/19/19) Weakness (07/19/19) Past Medical History (Last Reviewed 05/17/18 @ 09:28 by Rylee Reynoso DO) GERD (gastroesophageal reflux disease) (Chronic Unknown) Restless leg syndrome (Chronic Unknown) Provider Visit Care Team Role Provider Type Rylee Reynoso DO Primary Care Provider Physician Specialty: Family Practice Address: [address] [place] [address], [address], [address] Email: [email or web address] Jonathan Caruso MD Attending Provider Physician Specialty: Physical Medicine and Rehab Address: [address] [place] [address], [address] Email: [email or web address] Initial Evaluation PT-OP-A Visit Information Start: 07/19/19 09:47 Freq: Status: Active Protocol: Document 07/19/19 09:48 SAK (Rec: 07/19/19 10:04 SAK [id number]) Out-Patient Physical Therapy Visit Information Visit Information Visit Type Initial Evaluation Visit Start Time 09:45 Visit Stop Time 09:40 Total Visit Minutes 55 Visit Number 1 Number of MULTI OPERATION MACHINE OPERATOR Visits 0 PT-OP-B Current Condition Start: 07/19/19 09:47 Freq: Status: Active Protocol: Document 07/19/19 09:48 SAK (Rec: 07/19/19 10:04 SAK [id number]) Current Condition History of Current Condition Onset Date 5 yrs Current Complaints LBP, left LE, right LE, right shoulder pain History of Current Condition Progressive worsening pain starting in LB, extended to entire body. Diagnosed with fibromyalgia 2 months ago, put on Gabapentin (helps a little.). Works at [employer] starting 8 months ago, 10 hr shifts, on feet whole time. Sitting is worst. Laying on back most comfortable, sleeps on stomach. Uncomfortable on sides. Prior PT not helpful, made pain worse. Occasional Tramedol shot. Had cortisone shot left hip 07/16/19 with a little relief, next week to have cortisone shot in lumbar spine. Diagnosed with chronic bilateral low back pain with radiation to bilateral hips, lumbar facet arthroopathy, fibromyalgia, greater trochanteric bursitits of both hips. Prior Treatments and Tests see above Treatment Goals Patient/Caregiver Goals Decrease pain, improve activity tolerance. Prior Functional Status Baseline Function- ADL's Independent Baseline Function- Mobility Independent Baseline Function- Gait independent without pain Baseline Function- Recreation/Hobbies unlimited Current Functional Impairments (Reported) Functional Limitations- ADL's slow and painful Functional Limitations- Mobility/Gait slow and painful Functional Limitations- Work/School painful Functional Limitations- Recreation/ unable; when not at work Hobbies reports minimal activity, mostly laying down PT-OP-C Subjective Start: 07/19/19 09:47 Freq: Status: Active Protocol: Document 07/19/19 09:48 [facility] (Rec: 07/22/19 11:39 [facility] [id number]) Patient Questionnaires Oswestry Low Back Index Oswestry Score 54 Oswestry Impairment 40 to 59% Impaired (Score 40- 59) OP-PT Pain Assessment Pain Assessment Grid Paper Pain Assessment Grid Completed Yes Location bilateral lumbar spine, hips, Intensity 6 Scale Used Numeric (1 - 10) Description Aching Pressure Radiating Tender Tightness Throbbing With Movement Frequency Frequent Pain Aggravating Factors Activity Exercise Standing Sitting Walking Lifting Pain Alleviating Factors Inactivity Changing Position Rest Pain Behaviors Pain Behaviors Facial Grimacing Guarding Wincing PT-OP-H Neuro Start: 07/19/19 09:47 Freq: Status: Active Protocol: Document 07/19/19 09:48 [facility] (Rec: 07/22/19 11:39 [facility] [id number]) Sensation Evaluation Gross Sensation Gross Sensation WNL PT-OP-J Posture/Palpation/Skin Start: 07/19/19 09:47 Freq: Status: Active Protocol: Document 07/19/19 09:48 [facility] (Rec: 07/22/19 11:39 [facility] [id number]) Posture Evaluation Position Standing Head/C-Spine Posture Forward Head T-Spine Posture Increased Kyphosis L-Spine Posture Increased Lordosis Arm Posture (L) Internally Rotated (R) Internally Rotated Hip Posture (L) Externally Rotated (R) Externally Rotated Palpation Assessment Location bilateral hips Palpation Findings Tenderness lumbar spine Palpation Findings Tenderness PT-OP-K Range of Motion Start: 07/19/19 09:47 Freq: Status: Active Protocol: Document 07/19/19 09:48 SAK (Rec: 07/22/19 11:39 SAK [id number]) Lumbar Spine Range of Motion Lumbar Spine Active Flexion 15 Extension 8 Rotation Left 10 Rotation Right 10 Lateral Flexion Left 15 Lateral Flexion Right 15 ROM Limitations Pain Hip Goniometric Range of Motion Hip mayela Hip ROM WFL No Testing Position Supine Flexion w/Knee Flexed 95 Straight Leg Raise 70 Extension 0 Internal Rotation 10 External Rotation 30 Hip ROM Limitations Hip ROM Limitations Pain PT-OP-L Special Tests Start: 07/19/19 09:47 Freq: Status: Active Protocol: Document 07/19/19 09:48 SAK (Rec: 07/22/19 11:39 SAK [id number]) Special Tests Lumbar Spine Special Tests Manual Traction Test Results positive decrease in pain Standing Flexion Test Results All movement through hips Straight Leg Raise Test Results Limited secondary to HS tightness Compression Test Results Negative Slump Test Results Negative Hip Special Tests Piriformis Test Results Mild tightness/tenderness NAILA Test Results Positive left lateral hip pain Knee Special Tests Chio's Test Test Results Positive L PT-OP-M Strength Start: 07/19/19 09:47 Freq: Status: Active Protocol: Document 07/19/19 09:48 SAK (Rec: 07/22/19 11:39 SAK [id number]) Trunk Strength Trunk Manual Muscle Testing Core Stabilization poor Reason Not Measured Pain Hip Strength Hip Manual Muscle Testing Left Flexion (L2) 3+ Fair+ Extension (S1) 3- Fair- Abduction 3+ Fair+ Adduction 3+ Fair+ External Rotation 3+ Fair+ Comments painful Right Flexion (L2) 4 Good Extension (S1) 4- Good- Abduction 4 Good External Rotation 4- Good- Internal Rotation 4 Good Comments painful Knee Strength Knee Manual Muscle Testing mayela Flexion (S2) 4+ Good+ Extension (L3) 4+ Good+ Ankle/Foot Strength Ankle and Foot Manual Muscle Testing mayela Dorsiflexion (L4) 4+ Good+ Plantarflexion (S1) 4+ Good+ PT-OP-Q Treatments Start: 07/19/19 09:47 Freq: Status: Active Protocol: Document 07/19/19 09:48 SAK (Rec: 07/19/19 11:53 SAK [id number]) Self-Care/Home Management Treatment Education Patient Education Body Mechanics Home Exercise Program Other Education bed positioning for back support and health; issued handouts HEP: TrA activation with handout PT-OP-R Modalities Start: 07/19/19 09:47 Freq: Status: Active Protocol: Document 07/19/19 09:48 SAK (Rec: 07/19/19 11:53 SAK [id number]) Hot Pack/Cold Pack Treatment Hot Pack Location lumbar spine, left IT band Patient Position Hooklying Treatment Duration (minutes) 15 Patient Tolerance Good PT-OP-T Assessment and Plan Start: 07/19/19 09:47 Freq: Status: Active Protocol: Document 07/19/19 09:48 [facility] (Rec: 07/19/19 12:01 [facility] [id number]) Physical Therapy Assessment Rehab Potential Rehabilitation Potential Good Evaluation Complexity Number of Personal Factors/Comorbidities 3 or More Number of Body Systems Impaired 3 Clinical Presentation at Evaluation Evolving Impairments Impairments Activity Tolerance Pain Strength Goals Four Impairment Oswestry disability index score 54% Short Term Goal (STG) Decrease Owestry Disability index score to no greater than 40% STG Duration 08/18/19 Fci Goal (LTG) Decrease Oswestry disability index score to no greater than 25% LTG Duration 09/16/19 Three Impairment core and hip weakness with poor dynamic lumbar stabilization Short Term Goal (STG) Patient to be independent and compliant with HEP to address above impairments STG Duration 08/18/19 [facility]ci Goal (LTG) Patient to demonstrate improvement in muscle strength to at least 4+/5 and demonstrate appropriate lumbar stabilization ability statically and dynamically with functional activities. LTG Duration 09/16/19 Two Impairment Pt experiences pain at work after standing >5 hours Short Term Goal (STG) Patient able to tolerate standing for 4 hours without an increase in pain STG Duration 08/18/19 Fci Goal (LTG) Pt to tolerate full 8 hours shift with no increase in pain LTG Duration 09/16/19 One Impairment Poor tolerance for HEP, has not done aquatic exercise Short Term Goal (STG) Patient able to tolerate 45 min aquatic exercise program without an increase in pain STG Duration 08/18/19 Cloth Examiner Goal (LTG) Patient to be independent and compliant with independent aquatic exercise program LTG Duration 09/16/19 Assessment Summary Assessment Patient presents with pain throughout her low back, bilateral hips, and right shoulder. Recent diagnosis of fibromyalgia. Patient has a job which requires her to stand which is very painful. She presents with muscle imbalances including weakness and soft tissue tightness in lumbar spine and bilateral hips, pain with most movements in these areas as well as right shoulder. Feel she would benefit from physical therapy, especially aquatic therapy to address these impairments and help return her to a more active lifestyle with less pain and allow her to tolerate her work day more easily. Physical Therapy Plan Frequency and Duration Frequency of Treatment 2x/Week Duration of Treatment 8 wks Plan of Care Start Date 07/19/19 Plan of Care End Date 10/17/19 Therapeutic Interventions Therapeutic Interventions Aquatic Therapy Home Exercise Program Manual Therapy Neuromuscular Re-education Patient/Caregiver Education Self-Care/Home Management Soft Tissue Mobilization Taping Therapeutic Activities Therapeutic Exercises Modalities Hot Packs Ultrasound Next Visit Focus/Plan Next Note Type Treatment Note Next Visit Plan Initiate aquatic therapy.
--- NOTE | 2019-07-25 17:09 | PT.OTN ---
Current Diagnoses Spondylosis without myelopathy or radiculopathy, lumbar region (07/25/19) Lumbago with sciatica, left side (07/25/19) Trochanteric bursitis, right hip (07/25/19) Fibromyalgia (07/25/19) Weakness (07/25/19) Physical Therapy Treatment Note PT-OP-A Visit Information Start: 07/19/19 09:47 Freq: Status: Active Protocol: Document 07/25/19 17:00 SAK (Rec: 07/25/19 17:08 SAK [id number]) Out-Patient Physical Therapy Visit Information Visit Information Visit Type Treatment Note Visit Start Time 11:30 Visit Stop Time 12:16 Total Visit Minutes 46 Visit Number 2 PT-OP-B Current Condition Start: 07/19/19 09:47 Freq: Status: Active Protocol: Document 07/19/19 09:48 SAK (Rec: 07/19/19 10:04 SAK [id number]) Current Condition History of Current Condition Onset Date 5 yrs Current Complaints LBP, left LE, right LE, right shoulder pain History of Current Condition Progressive worsening pain starting in LB, extended to entire body. Diagnosed with fibromyalgia 2 months ago, put on Gabapentin (helps a little.). Works at [employer] starting 8 months ago, 10 hr shifts, on feet whole time. Sitting is worst. Laying on back most comfortable, sleeps on stomach. Uncomfortable on sides. Prior PT not helpful, made pain worse. Occasional Tramedol shot. Had cortisone shot left hip 07/16/19 with a little relief, next week to have cortisone shot in lumbar spine. Diagnosed with chronic bilateral low back pain with radiation to bilateral hips, lumbar facet arthroopathy, fibromyalgia, greater trochanteric bursitits of both hips. Prior Treatments and Tests see above Treatment Goals Patient/Caregiver Goals Decrease pain, improve activity tolerance. Prior Functional Status Baseline Function- ADL's Independent Baseline Function- Mobility Independent Baseline Function- Gait independent without pain Baseline Function- Recreation/Hobbies unlimited Current Functional Impairments (Reported) Functional Limitations- ADL's slow and painful Functional Limitations- Mobility/Gait slow and painful Functional Limitations- Work/School painful Functional Limitations- Recreation/ unable; when not at work Hobbies reports minimal activity, mostly laying down PT-OP-C Subjective Start: 07/19/19 09:47 Freq: Status: Active Protocol: Document 07/25/19 17:00 SAK (Rec: 07/25/19 17:08 SAK [id number]) OP-PT Subjective Patient Comments Patient Comments Excited to start aquatic PT. PT-OP-H Neuro Start: 07/19/19 09:47 Freq: Status: Active Protocol: Document 07/19/19 09:48 SAK (Rec: 07/22/19 11:39 SAK [id number]) Sensation Evaluation Gross Sensation Gross Sensation WNL PT-OP-J Posture/Palpation/Skin Start: 07/19/19 09:47 Freq: Status: Active Protocol: Document 07/19/19 09:48 SAK (Rec: 07/22/19 11:39 SAK [id number]) Posture Evaluation Position Standing Head/C-Spine Posture Forward Head T-Spine Posture Increased Kyphosis L-Spine Posture Increased Lordosis Arm Posture (L) Internally Rotated,(R) Internally Rotated Hip Posture (L) Externally Rotated,(R) Externally Rotated Palpation Assessment Location bilateral hips Palpation Findings Tenderness lumbar spine Palpation Findings Tenderness PT-OP-K Range of Motion Start: 07/19/19 09:47 Freq: Status: Active Protocol: Document 07/19/19 09:48 SAK (Rec: 07/22/19 11:39 SAK [id number]) Lumbar Spine Range of Motion Lumbar Spine Active Flexion 15 Extension 8 Rotation Left 10 Rotation Right 10 Lateral Flexion Left 15 Lateral Flexion Right 15 ROM Limitations Pain Hip Goniometric Range of Motion Hip mayela Hip ROM WFL No Testing Position Supine Flexion w/Knee Flexed 95 Straight Leg Raise 70 Extension 0 Internal Rotation 10 External Rotation 30 Hip ROM Limitations Hip ROM Limitations Pain PT-OP-L Special Tests Start: 07/19/19 09:47 Freq: Status: Active Protocol: Document 07/19/19 09:48 SAK (Rec: 07/22/19 11:39 SAK [id number]) Special Tests Lumbar Spine Special Tests Manual Traction Test Results positive decrease in pain Standing Flexion Test Results All movement through hips Straight Leg Raise Test Results Limited secondary to HS tightness Compression Test Results Negative Slump Test Results Negative Hip Special Tests Piriformis Test Results Mild tightness/tenderness NAILA Test Results Positive left lateral hip pain Knee Special Tests Chio's Test Test Results Positive L PT-OP-M Strength Start: 07/19/19 09:47 Freq: Status: Active Protocol: Document 07/19/19 09:48 [facility] (Rec: 07/22/19 11:39 [facility] [id number]) Trunk Strength Trunk Manual Muscle Testing Core Stabilization poor Reason Not Measured Pain Hip Strength Hip Manual Muscle Testing Left Flexion (L2) 3+ Fair+ Extension (S1) 3- Fair- Abduction 3+ Fair+ Adduction 3+ Fair+ External Rotation 3+ Fair+ Comments painful Right Flexion (L2) 4 Good Extension (S1) 4- Good- Abduction 4 Good External Rotation 4- Good- Internal Rotation 4 Good Comments painful Knee Strength Knee Manual Muscle Testing mayela Flexion (S2) 4+ Good+ Extension (L3) 4+ Good+ Ankle/Foot Strength Ankle and Foot Manual Muscle Testing amyela Dorsiflexion (L4) 4+ Good+ Plantarflexion (S1) 4+ Good+ PT-OP-Q Treatments Start: 07/19/19 09:47 Freq: Status: Active Protocol: Document 07/19/19 09:48 [facility] (Rec: 07/19/19 11:53 [facility] [id number]) Self-Care/Home Management Treatment Education Patient Education Body Mechanics,Home Exercise Program Other Education bed positioning for back support and health; issued handouts HEP: TrA activation with handout PT-OP-R Modalities Start: 07/19/19 09:47 Freq: Status: Active Protocol: Document 07/19/19 09:48 [facility] (Rec: 07/19/19 11:53 [facility] [id number]) Hot Pack/Cold Pack Treatment Hot Pack Location lumbar spine, left IT band Patient Position Hooklying Treatment Duration (minutes) 15 Patient Tolerance Good PT-OP-S Aquatic Treatment Start: 07/19/19 09:47 Freq: Status: Active Protocol: Document 07/25/19 17:00 [facility] (Rec: 07/25/19 17:08 [facility] [id number]) Aquatics Treatment Pool Entry/Exit Pool Entry/Exit Method Stairs Assistance Independent Water Walking january Water Level Chest Level Level of Assistance Verbal Cues Sideways Water Level Chest Level Level of Assistance Verbal Cues backward Water Level Chest Level Level of Assistance Verbal Cues forward Water Level Chest Level Level of Assistance Verbal Cues Lower Extremity Exercises circles Water Level Chest Level Reps/Duration 10x large slow, 10x small fast hip ab/ad Body Position Standing Water Level Chest Level Reps/Duration 10x large slow, 10x small fast hip flex/ext Body Position Standing Water Level Chest Level Reps/Duration 10x large slow, 10x small fast squats Water Level Chest Level Reps/Duration 10x Lower Extremity Stretches quads, hip flex Body Position Standing Water Level Chest Level Equipment Small Noodle Reps/Duration 2x ITB Body Position Standing Water Level Chest Level Equipment Small Noodle Reps/Duration 2x hamstrings Body Position Standing Water Level Chest Level Equipment Small Noodle Reps/Duration 2x Upper Extremity Exercises shoulder flex/ext Body Position Standing Reps/Duration 10x ea Comments mayela and unil shoulder hor ab/ad Details emphasis on core stab Body Position Standing Water Level Chest Level Reps/Duration 10x ea Comments mayela and unil [place] Activities [place] Activities Bicycle,Cross Country,Running, Hip Abduction/Adduction Equipment no flotation Duration 20 min PT-OP-T Assessment and Plan Start: 07/19/19 09:47 Freq: Status: Active Protocol: Document 07/25/19 17:00 CINDY (Rec: 07/25/19 17:08 [facility] [id number]) Physical Therapy Assessment Goals Four Impairment Oswestry disability index score 54% Short Term Goal (STG) Decrease Owestry Disability index score to no greater than 40% STG Duration 08/18/19 Snf Goal (LTG) Decrease Oswestry disability index score to no greater than 25% LTG Duration 09/16/19 Three Impairment core and hip weakness with poor dynamic lumbar stabilization Short Term Goal (STG) Patient to be independent and compliant with HEP to address above impairments STG Duration 08/18/19 Snf Goal (LTG) Patient to demonstrate improvement in muscle strength to at least 4+/5 and demonstrate appropriate lumbar stabilization ability statically and dynamically with functional activities. LTG Duration 09/16/19 Two Impairment Pt experiences pain at work after standing >5 hours Short Term Goal (STG) Patient able to tolerate standing for 4 hours without an increase in pain STG Duration 08/18/19 Snf Goal (LTG) Pt to tolerate full 8 hours shift with no increase in pain LTG Duration 09/16/19 One Impairment Poor tolerance for HEP, has not done aquatic exercise Short Term Goal (STG) Patient able to tolerate 45 min aquatic exercise program without an increase in pain STG Duration 08/18/19 Boiler Operator Goal (LTG) Patient to be independent and compliant with independent aquatic exercise program LTG Duration 09/16/19 Physical Therapy Plan Frequency and Duration Frequency of Treatment 2x/Week Duration of Treatment 8 wks Plan of Care Start Date 07/19/19 Plan of Care End Date 10/17/19 Therapeutic Interventions Therapeutic Interventions Aquatic Therapy,Home Exercise Program,Manual Therapy, Neuromuscular Re-education, Patient/Caregiver Education, Self-Care/Home Management,Soft Tissue Mobilization,Taping, Therapeutic Activities, Therapeutic Exercises Modalities Hot Packs,Ultrasound Next Visit Focus/Plan Next Note Type Treatment Note Next Visit Plan Progress as tolerated with aquatic therapy exercises for strengthening and flexibility, pain managment.
--- NOTE | 2019-08-20 11:00 | PT.OTN ---
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) Lumbago with sciatica, left side (08/20/19) Trochanteric bursitis, right hip (08/20/19) Fibromyalgia (08/20/19) Weakness (08/20/19) Physical Therapy Treatment Note PT-OP-A Visit Information Start: 07/19/19 09:47 Freq: Status: Active Protocol: Document 08/20/19 11:00 SAK (Rec: 08/21/19 08:34 SAK [id number]) Out-Patient Physical Therapy Visit Information Visit Information Visit Type Treatment Note Visit Start Time 11:00 Visit Stop Time 11:45 Total Visit Minutes 46 Visit Number 3 PT-OP-B Current Condition Start: 07/19/19 09:47 Freq: Status: Active Protocol: Document 08/20/19 11:00 SAK (Rec: 08/21/19 08:34 SAK [id number]) Current Condition History of Current Condition Current Complaints LBP, left LE, right LE, right shoulder History of Current Condition Progressive worsening pain starting in LB, extended to entire body. Diagnosed with fibromyalgia 2 months ago, put on Gabapentin (helps a little.). Works at [employer] starting 8 months ago, 10 hr shifts on feet. Sitting is worst. Laying on back most comfortable, sleeps on stomach . Uncomfortable on sides. Prior PT not helpful, made pain worse. Occasional Tramedol shot. Had cortisone shot left hip 07/16/19 with a little relief, next week to have in lumbar spine. PT-OP-C Subjective Start: 07/19/19 09:47 Freq: Status: Active Protocol: Document 08/20/19 11:00 SAK (Rec: 08/21/19 08:34 SAK [id number]) OP-PT Subjective Patient Comments Patient Comments Had the last 4 days off work, pain better when not working though still painful and continues to have radicular symptoms into LE PT-OP-H Neuro Start: 07/19/19 09:47 Freq: Status: Active Protocol: Document 07/19/19 09:48 SAK (Rec: 07/22/19 11:39 SAK [id number]) Sensation Evaluation Gross Sensation Gross Sensation WNL PT-OP-J Posture/Palpation/Skin Start: 07/19/19 09:47 Freq: Status: Active Protocol: Document 07/19/19 09:48 SAK (Rec: 07/22/19 11:39 SAK [id number]) Posture Evaluation Position Standing Head/C-Spine Posture Forward Head T-Spine Posture Increased Kyphosis L-Spine Posture Increased Lordosis Arm Posture (L) Internally Rotated,(R) Internally Rotated Hip Posture (L) Externally Rotated,(R) Externally Rotated Palpation Assessment Location bilateral hips Palpation Findings Tenderness lumbar spine Palpation Findings Tenderness PT-OP-K Range of Motion Start: 07/19/19 09:47 Freq: Status: Active Protocol: Document 07/19/19 09:48 SAK (Rec: 07/22/19 11:39 SAK [id number]) Lumbar Spine Range of Motion Lumbar Spine Active Flexion 15 Extension 8 Rotation Left 10 Rotation Right 10 Lateral Flexion Left 15 Lateral Flexion Right 15 ROM Limitations Pain Hip Goniometric Range of Motion Hip mayela Hip ROM WFL No Testing Position Supine Flexion w/Knee Flexed 95 Straight Leg Raise 70 Extension 0 Internal Rotation 10 External Rotation 30 Hip ROM Limitations Hip ROM Limitations Pain PT-OP-L Special Tests Start: 07/19/19 09:47 Freq: Status: Active Protocol: Document 07/19/19 09:48 SAK (Rec: 07/22/19 11:39 SAK [id number]) Special Tests Lumbar Spine Special Tests Manual Traction Test Results positive decrease in pain Standing Flexion Test Results All movement through hips Straight Leg Raise Test Results Limited secondary to HS tightness Compression Test Results Negative Slump Test Results Negative Hip Special Tests Piriformis Test Results Mild tightness/tenderness NAILA Test Results Positive left lateral hip pain Knee Special Tests Chio's Test Test Results Positive L PT-OP-M Strength Start: 07/19/19 09:47 Freq: Status: Active Protocol: Document 07/19/19 09:48 SAK (Rec: 07/22/19 11:39 SAK [id number]) Trunk Strength Trunk Manual Muscle Testing Core Stabilization poor Reason Not Measured Pain Hip Strength Hip Manual Muscle Testing Left Flexion (L2) 3+ Fair+ Extension (S1) 3- Fair- Abduction 3+ Fair+ Adduction 3+ Fair+ External Rotation 3+ Fair+ Comments painful Right Flexion (L2) 4 Good Extension (S1) 4- Good- Abduction 4 Good External Rotation 4- Good- Internal Rotation 4 Good Comments painful Knee Strength Knee Manual Muscle Testing mayela Flexion (S2) 4+ Good+ Extension (L3) 4+ Good+ Ankle/Foot Strength Ankle and Foot Manual Muscle Testing mayela Dorsiflexion (L4) 4+ Good+ Plantarflexion (S1) 4+ Good+ PT-OP-Q Treatments Start: 07/19/19 09:47 Freq: Status: Active Protocol: Document 07/19/19 09:48 SAK (Rec: 07/19/19 11:53 [facility] [id number]) Self-Care/Home Management Treatment Education Patient Education Body Mechanics,Home Exercise Program Other Education bed positioning for back support and health; issued handouts HEP: TrA activation with handout PT-OP-R Modalities Start: 07/19/19 09:47 Freq: Status: Active Protocol: Document 07/19/19 09:48 SAK (Rec: 07/19/19 11:53 [facility] [id number]) Hot Pack/Cold Pack Treatment Hot Pack Location lumbar spine, left IT band Patient Position Hooklying Treatment Duration (minutes) 15 Patient Tolerance Good PT-OP-S Aquatic Treatment Start: 07/19/19 09:47 Freq: Status: Active Protocol: Document 08/20/19 11:00 [facility] (Rec: 08/21/19 08:34 [facility] [id number]) Aquatics Treatment Pool Entry/Exit Pool Entry/Exit Method Stairs Assistance Independent Water Walking january Water Level Chest Level Level of Assistance Verbal Cues Sideways Water Level Chest Level Level of Assistance Verbal Cues backward Water Level Chest Level Level of Assistance Verbal Cues forward Water Level Chest Level Level of Assistance Verbal Cues Lower Extremity Exercises squats Water Level Chest Level Reps/Duration 10x Lower Extremity Stretches spiderman stretch Water Level [place] Reps/Duration 2x Comments wall DKTC, SKTC Body Position Standing Water Level [place] Reps/Duration 2x Comments wall hamstrings Body Position Standing Water Level [place] Equipment wall Reps/Duration 2x Spinal Exercises DLS Reps/Duration 10 min Comments med barbells, large belt, tether [place] Activities [place] Activities Bicycle,Bicycle Backwards, Cross Country,Running,Hip Abduction/Adduction Other Activities bicycle holding barbells submerged at sides (med barbells) Equipment no flotation Duration 20 min Other deep water traction Equipment 5# mayela, [place] float Reps/Duration 10 min PT-OP-T Assessment and Plan Start: 07/19/19 09:47 Freq: Status: Active Protocol: Document 08/20/19 11:00 SAK (Rec: 08/21/19 08:34 [facility] [id number]) Physical Therapy Assessment Goals Four Impairment Oswestry disability index score 54% Short Term Goal (STG) Decrease [place]west[place] Disability index score to no greater than 40% STG Duration 08/18/19 Research Compliance Specialist Goal (LTG) Decrease Oswestry disability index score to no greater than 25% LTG Duration 09/16/19 Three Impairment core and hip weakness with poor dynamic lumbar stabilization Short Term Goal (STG) Patient to be independent and compliant with HEP to address above impairments STG Duration 08/18/19 [facility] Goal (LTG) Patient to demonstrate improvement in muscle strength to at least 4+/5 and demonstrate appropriate lumbar stabilization ability statically and dynamically with functional activities. LTG Duration 09/16/19 Two Impairment Pt experiences pain at work after standing >5 hours Short Term Goal (STG) Patient able to tolerate standing for 4 hours without an increase in pain STG Duration 08/18/19 [facility] Goal (LTG) Pt to tolerate full 8 hours shift with no increase in pain LTG Duration 09/16/19 One Impairment Poor tolerance for HEP, has not done aquatic exercise Short Term Goal (STG) Patient able to tolerate 45 min aquatic exercise program without an increase in pain STG Duration 08/18/19 [facility] Goal (LTG) Patient to be independent and compliant with independent aquatic exercise program LTG Duration 09/16/19 Assessment Summary Assessment Patient has tendency to have excessive forward head, flexed trunk; mod verbal and manual cues for postural correction. Physical Therapy Plan Frequency and Duration Frequency of Treatment 2x/Week Duration of Treatment 8 wks Plan of Care Start Date 07/19/19 Plan of Care End Date 10/17/19 Therapeutic Interventions Therapeutic Interventions Aquatic Therapy,Home Exercise Program,Joint Mobilizations, Manual Therapy,Neuromuscular Re-education,Patient/Caregiver Education,Self-Care/Home Management,Soft Tissue Mobilization,Therapeutic Activities,Therapeutic Exercises Modalities Cold Pack/Ice Massage,Electric Stimulation,Hot Packs, Iontophoresis,Ultrasound Next Visit Focus/Plan Next Note Type Treatment Note Next Visit Plan Evaluate response to deep water traction and DLS. Progress as indicated with aquatic therapy, consider manual techniques. Wall posture.
--- NOTE | 2019-08-22 16:44 | PT-OP ANOTE ---
DNS for aquatic PT appointment
--- NOTE | 2019-08-27 11:45 | PT.OTN ---
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) Lumbago with sciatica, left side (08/20/19) Trochanteric bursitis, right hip (08/20/19) Fibromyalgia (08/20/19) Weakness (08/20/19) Physical Therapy Treatment Note PT-OP-A Visit Information Start: 07/19/19 09:47 Freq: Status: Active Protocol: Document 08/27/19 11:00 CLB (Rec: 08/27/19 14:01 CLB [id number]) Out-Patient Physical Therapy Visit Information Visit Information Visit Start Time 11:00 Visit Stop Time 11:45 Total Visit Minutes 45 Visit Number 4 Number of FRUIT PICKER Visits 1 PT-OP-B Current Condition Start: 07/19/19 09:47 Freq: Status: Active Protocol: Document 08/20/19 11:00 SAK (Rec: 08/21/19 08:34 SAK [id number]) Current Condition History of Current Condition Current Complaints LBP, left LE, right LE, right shoulder History of Current Condition Progressive worsening pain starting in LB, extended to entire body. Diagnosed with fibromyalgia 2 months ago, put on Gabapentin (helps a little.). Works at [employer] starting 8 months ago, 10 hr shifts on feet. Sitting is worst. Laying on back most comfortable, sleeps on stomach . Uncomfortable on sides. Prior PT not helpful, made pain worse. Occasional Tramedol shot. Had cortisone shot left hip 07/16/19 with a little relief, next week to have in lumbar spine. PT-OP-C Subjective Start: 07/19/19 09:47 Freq: Status: Active Protocol: Document 08/27/19 11:00 CLB (Rec: 08/27/19 14:01 CLB [id number]) OP-PT Subjective Patient Comments Patient Comments Pt reports not having pain in pool but continues to have pain in low back into feet. PT-OP-H Neuro Start: 07/19/19 09:47 Freq: Status: Active Protocol: Document 07/19/19 09:48 SAK (Rec: 07/22/19 11:39 SAK [id number]) Sensation Evaluation Gross Sensation Gross Sensation WNL PT-OP-J Posture/Palpation/Skin Start: 07/19/19 09:47 Freq: Status: Active Protocol: Document 07/19/19 09:48 SAK (Rec: 07/22/19 11:39 SAK [id number]) Posture Evaluation Position Standing Head/C-Spine Posture Forward Head T-Spine Posture Increased Kyphosis L-Spine Posture Increased Lordosis Arm Posture (L) Internally Rotated,(R) Internally Rotated Hip Posture (L) Externally Rotated,(R) Externally Rotated Palpation Assessment Location bilateral hips Palpation Findings Tenderness lumbar spine Palpation Findings Tenderness PT-OP-K Range of Motion Start: 07/19/19 09:47 Freq: Status: Active Protocol: Document 07/19/19 09:48 SAK (Rec: 07/22/19 11:39 SAK [id number]) Lumbar Spine Range of Motion Lumbar Spine Active Flexion 15 Extension 8 Rotation Left 10 Rotation Right 10 Lateral Flexion Left 15 Lateral Flexion Right 15 ROM Limitations Pain Hip Goniometric Range of Motion Hip mayela Hip ROM WFL No Testing Position Supine Flexion w/Knee Flexed 95 Straight Leg Raise 70 Extension 0 Internal Rotation 10 External Rotation 30 Hip ROM Limitations Hip ROM Limitations Pain PT-OP-L Special Tests Start: 07/19/19 09:47 Freq: Status: Active Protocol: Document 07/19/19 09:48 SAK (Rec: 07/22/19 11:39 SAK [id number]) Special Tests Lumbar Spine Special Tests Manual Traction Test Results positive decrease in pain Standing Flexion Test Results All movement through hips Straight Leg Raise Test Results Limited secondary to HS tightness Compression Test Results Negative Slump Test Results Negative Hip Special Tests Piriformis Test Results Mild tightness/tenderness NAILA Test Results Positive left lateral hip pain Knee Special Tests Chio's Test Test Results Positive L PT-OP-M Strength Start: 07/19/19 09:47 Freq: Status: Active Protocol: Document 07/19/19 09:48 SAK (Rec: 07/22/19 11:39 SAK [id number]) Trunk Strength Trunk Manual Muscle Testing Core Stabilization poor Reason Not Measured Pain Hip Strength Hip Manual Muscle Testing Left Flexion (L2) 3+ Fair+ Extension (S1) 3- Fair- Abduction 3+ Fair+ Adduction 3+ Fair+ External Rotation 3+ Fair+ Comments painful Right Flexion (L2) 4 Good Extension (S1) 4- Good- Abduction 4 Good External Rotation 4- Good- Internal Rotation 4 Good Comments painful Knee Strength Knee Manual Muscle Testing mayela Flexion (S2) 4+ Good+ Extension (L3) 4+ Good+ Ankle/Foot Strength Ankle and Foot Manual Muscle Testing mayela Dorsiflexion (L4) 4+ Good+ Plantarflexion (S1) 4+ Good+ PT-OP-Q Treatments Start: 07/19/19 09:47 Freq: Status: Active Protocol: Document 07/19/19 09:48 SAK (Rec: 07/19/19 11:53 SAK [id number]) Self-Care/Home Management Treatment Education Patient Education Body Mechanics,Home Exercise Program Other Education bed positioning for back support and health; issued handouts HEP: TrA activation with handout PT-OP-R Modalities Start: 07/19/19 09:47 Freq: Status: Active Protocol: Document 07/19/19 09:48 SAK (Rec: 07/19/19 11:53 SAK [id number]) Hot Pack/Cold Pack Treatment Hot Pack Location lumbar spine, left IT band Patient Position Hooklying Treatment Duration (minutes) 15 Patient Tolerance Good PT-OP-S Aquatic Treatment Start: 07/19/19 09:47 Freq: Status: Active Protocol: Document 08/27/19 11:00 CLB (Rec: 08/27/19 14:01 CLB [id number]) Aquatics Treatment Pool Entry/Exit Pool Entry/Exit Method Stairs Assistance Independent Water Walking january Water Level Chest Level Level of Assistance Verbal Cues Sideways Water Level Chest Level Level of Assistance Verbal Cues backward Water Level Chest Level Level of Assistance Verbal Cues forward Water Level Chest Level Level of Assistance Verbal Cues Lower Extremity Exercises circles Water Level Chest Level Reps/Duration 10x large slow, 10x small fast hip ab/ad Body Position Standing Water Level Chest Level Reps/Duration 10x large slow, 10x small fast hip flex/ext Body Position Standing Water Level Chest Level Reps/Duration 10x large slow, 10x small fast squats Water Level Chest Level Reps/Duration 10x Lower Extremity Stretches spiderman stretch Water Level [place] Reps/Duration 2x Comments wall DKTC, SKTC Body Position Standing Water Level [place] Reps/Duration 2x Comments wall quads, hip flex Body Position Standing Water Level Chest Level Equipment Small Noodle Reps/Duration 2x ITB Body Position Standing Water Level Chest Level Equipment Small Noodle Reps/Duration 2x hamstrings Body Position Standing Water Level [place] Equipment wall Reps/Duration 2x Spinal Exercises DLS Reps/Duration 10 min Comments med barbells, large belt, tether [place] Activities [place] Activities Bicycle,Bicycle Backwards, Cross Country,Running,Hip Abduction/Adduction Other Activities bicycle holding barbells submerged at sides (med barbells) Equipment no flotation Duration 20 min Other deep water traction Equipment 5# mayela, [place] float Reps/Duration 10 min PT-OP-T Assessment and Plan Start: 07/19/19 09:47 Freq: Status: Active Protocol: Document 08/27/19 11:00 CLB (Rec: 08/27/19 14:01 CLB [id number]) Physical Therapy Assessment Goals Four Impairment Oswestry disability index score 54% Short Term Goal (STG) Decrease Owestry Disability index score to no greater than 40% STG Duration 08/18/19 Greenskeeper Head Goal (LTG) Decrease Oswestry disability index score to no greater than 25% LTG Duration 09/16/19 Three Impairment core and hip weakness with poor dynamic lumbar stabilization Short Term Goal (STG) Patient to be independent and compliant with HEP to address above impairments STG Duration 08/18/19 Greenskeeper Head Goal (LTG) Patient to demonstrate improvement in muscle strength to at least 4+/5 and demonstrate appropriate lumbar stabilization ability statically and dynamically with functional activities. LTG Duration 09/16/19 Two Impairment Pt experiences pain at work after standing >5 hours Short Term Goal (STG) Patient able to tolerate standing for 4 hours without an increase in pain STG Duration 08/18/19 Prison Goal (LTG) Pt to tolerate full 8 hours shift with no increase in pain LTG Duration 09/16/19 One Impairment Poor tolerance for HEP, has not done aquatic exercise Short Term Goal (STG) Patient able to tolerate 45 min aquatic exercise program without an increase in pain STG Duration 08/18/19 Prison Goal (LTG) Patient to be independent and compliant with independent aquatic exercise program LTG Duration 09/16/19 Assessment Summary Assessment Pt continues to require cues for posture and cues for abdominal engagement. Physical Therapy Plan Frequency and Duration Frequency of Treatment 2x/Week Duration of Treatment 8 wks Plan of Care Start Date 07/19/19 Plan of Care End Date 10/17/19 Next Visit Focus/Plan Next Note Type Treatment Note Next Visit Plan Evaluate response to deep water traction and DLS. Progress as indicated with aquatic therapy, consider manual techniques. Wall posture.
--- NOTE | 2019-09-03 16:32 | PT.OTN ---
Current Diagnoses Spondylosis without myelopathy or radiculopathy, lumbar region (09/03/19) Lumbago with sciatica, left side (09/03/19) Trochanteric bursitis, right hip (09/03/19) Fibromyalgia (09/03/19) Weakness (09/03/19) Physical Therapy Treatment Note PT-OP-A Visit Information Start: 07/19/19 09:47 Freq: Status: Active Protocol: Document 09/03/19 10:15 MARVIN (Rec: 09/03/19 16:32 LJ [id number]) Out-Patient Physical Therapy Visit Information Visit Information Visit Start Time 10:15 Visit Stop Time 11:00 Total Visit Minutes 45 Visit Number 5 Number of 911 EM[employer] DISPATCHER Visits 2 PT-OP-B Current Condition Start: 07/19/19 09:47 Freq: Status: Active Protocol: Document 08/20/19 11:00 SAK (Rec: 08/21/19 08:34 SAK [id number]) Current Condition History of Current Condition Current Complaints LBP, left LE, right LE, right shoulder History of Current Condition Progressive worsening pain starting in LB, extended to entire body. Diagnosed with fibromyalgia 2 months ago, put on Gabapentin (helps a little.). Works at [employer] starting 8 months ago, 10 hr shifts on feet. Sitting is worst. Laying on back most comfortable, sleeps on stomach . Uncomfortable on sides. Prior PT not helpful, made pain worse. Occasional Tramedol shot. Had cortisone shot left hip 07/16/19 with a little relief, next week to have in lumbar spine. PT-OP-C Subjective Start: 07/19/19 09:47 Freq: Status: Active Protocol: Document 09/03/19 10:15 MARVIN (Rec: 09/03/19 16:32 LJ [id number]) OP-PT Subjective Patient Comments Patient Comments Pt states her pain is in her low back today. She reports that it changes often. She has been unable to sleep due to pain waking her up. She is sleeping on a slot bed which she thinks is causing increase in pain. PT-OP-H Neuro Start: 07/19/19 09:47 Freq: Status: Active Protocol: Document 07/19/19 09:48 SAK (Rec: 07/22/19 11:39 SAK [id number]) Sensation Evaluation Gross Sensation Gross Sensation WNL PT-OP-J Posture/Palpation/Skin Start: 07/19/19 09:47 Freq: Status: Active Protocol: Document 07/19/19 09:48 SAK (Rec: 07/22/19 11:39 SAK [id number]) Posture Evaluation Position Standing Head/C-Spine Posture Forward Head T-Spine Posture Increased Kyphosis L-Spine Posture Increased Lordosis Arm Posture (L) Internally Rotated,(R) Internally Rotated Hip Posture (L) Externally Rotated,(R) Externally Rotated Palpation Assessment Location bilateral hips Palpation Findings Tenderness lumbar spine Palpation Findings Tenderness PT-OP-K Range of Motion Start: 07/19/19 09:47 Freq: Status: Active Protocol: Document 07/19/19 09:48 SAK (Rec: 07/22/19 11:39 SAK [id number]) Lumbar Spine Range of Motion Lumbar Spine Active Flexion 15 Extension 8 Rotation Left 10 Rotation Right 10 Lateral Flexion Left 15 Lateral Flexion Right 15 ROM Limitations Pain Hip Goniometric Range of Motion Hip mayela Hip ROM WFL No Testing Position Supine Flexion w/Knee Flexed 95 Straight Leg Raise 70 Extension 0 Internal Rotation 10 External Rotation 30 Hip ROM Limitations Hip ROM Limitations Pain PT-OP-L Special Tests Start: 07/19/19 09:47 Freq: Status: Active Protocol: Document 07/19/19 09:48 SAK (Rec: 07/22/19 11:39 SAK [id number]) Special Tests Lumbar Spine Special Tests Manual Traction Test Results positive decrease in pain Standing Flexion Test Results All movement through hips Straight Leg Raise Test Results Limited secondary to HS tightness Compression Test Results Negative Slump Test Results Negative Hip Special Tests Piriformis Test Results Mild tightness/tenderness NAILA Test Results Positive left lateral hip pain Knee Special Tests Chio's Test Test Results Positive L PT-OP-M Strength Start: 07/19/19 09:47 Freq: Status: Active Protocol: Document 07/19/19 09:48 SAK (Rec: 07/22/19 11:39 SAK [id number]) Trunk Strength Trunk Manual Muscle Testing Core Stabilization poor Reason Not Measured Pain Hip Strength Hip Manual Muscle Testing Left Flexion (L2) 3+ Fair+ Extension (S1) 3- Fair- Abduction 3+ Fair+ Adduction 3+ Fair+ External Rotation 3+ Fair+ Comments painful Right Flexion (L2) 4 Good Extension (S1) 4- Good- Abduction 4 Good External Rotation 4- Good- Internal Rotation 4 Good Comments painful Knee Strength Knee Manual Muscle Testing mayela Flexion (S2) 4+ Good+ Extension (L3) 4+ Good+ Ankle/Foot Strength Ankle and Foot Manual Muscle Testing mayela Dorsiflexion (L4) 4+ Good+ Plantarflexion (S1) 4+ Good+ PT-OP-Q Treatments Start: 07/19/19 09:47 Freq: Status: Active Protocol: Document 07/19/19 09:48 SAK (Rec: 07/19/19 11:53 SAK [id number]) Self-Care/Home Management Treatment Education Patient Education Body Mechanics,Home Exercise Program Other Education bed positioning for back support and health; issued handouts HEP: TrA activation with handout PT-OP-R Modalities Start: 07/19/19 09:47 Freq: Status: Active Protocol: Document 07/19/19 09:48 SAK (Rec: 07/19/19 11:53 SAK [id number]) Hot Pack/Cold Pack Treatment Hot Pack Location lumbar spine, left IT band Patient Position Hooklying Treatment Duration (minutes) 15 Patient Tolerance Good PT-OP-S Aquatic Treatment Start: 07/19/19 09:47 Freq: Status: Active Protocol: Document 09/03/19 10:15 LJ (Rec: 09/03/19 16:32 LJ [id number]) Aquatics Treatment Pool Entry/Exit Pool Entry/Exit Method Stairs Assistance Independent Water Walking january Water Level Chest Level Level of Assistance Verbal Cues Sideways Water Level Chest Level Level of Assistance Verbal Cues backward Water Level Chest Level Level of Assistance Verbal Cues forward Water Level Chest Level Level of Assistance Verbal Cues Lower Extremity Exercises HS curls Details supported at wall Body Position Standing Water Level Waist Level Reps/Duration 10x bilat circles Water Level Chest Level Reps/Duration 10x large slow, 10x small fast hip ab/ad Body Position Standing Water Level Chest Level Reps/Duration 10x large slow, 10x small fast hip flex/ext Body Position Standing Water Level Chest Level Reps/Duration 10x large slow, 10x small fast squats Water Level Waist Level Reps/Duration 10x Comments cues for muscle activation sequence Lower Extremity Stretches spiderman stretch Water Level [place] Reps/Duration 2x Comments wall DKTC, SKTC Body Position Standing Water Level Waist Level Reps/Duration 2x Comments wall quads, hip flex Body Position Standing Water Level Chest Level Equipment Small Noodle Reps/Duration 2x Comments pulsing ITB Body Position Standing Water Level Chest Level Equipment Small Noodle Reps/Duration 2x Comments added torso stretch hamstrings Body Position Standing Water Level Waist Level Equipment wall Reps/Duration 2x Upper Extremity Exercises shoulder flex/ext Body Position Standing Reps/Duration 10x ea Comments mayela and unil shoulder hor ab/ad Details emphasis on core stab Body Position Standing Water Level Chest Level Reps/Duration 10x ea Comments mayela and unil [place] Activities [place] Activities Bicycle,Bicycle Backwards, Cross Country,Running,Hip Abduction/Adduction Other Activities bicycle holding barbells submerged at sides (med barbells) Equipment no flotation Duration 20 min PT-OP-T Assessment and Plan Start: 07/19/19 09:47 Freq: Status: Active Protocol: Document 09/03/19 10:15 MARVIN (Rec: 09/03/19 16:32 MARVIN [email or web address]) Physical Therapy Assessment Goals Four Impairment Oswestry disability index score 54% Short Term Goal (STG) Decrease [place] Disability index score to no greater than 40% STG Duration 08/18/19 Snf Goal (LTG) Decrease Oswestry disability index score to no greater than 25% LTG Duration 09/16/19 Three Impairment core and hip weakness with poor dynamic lumbar stabilization Short Term Goal (STG) Patient to be independent and compliant with HEP to address above impairments STG Duration 08/18/19 Snf Goal (LTG) Patient to demonstrate improvement in muscle strength to at least 4+/5 and demonstrate appropriate lumbar stabilization ability statically and dynamically with functional activities. LTG Duration 09/16/19 Two Impairment Pt experiences pain at work after standing >5 hours Short Term Goal (STG) Patient able to tolerate standing for 4 hours without an increase in pain STG Duration 08/18/19 Snf Goal (LTG) Pt to tolerate full 8 hours shift with no increase in pain LTG Duration 09/16/19 One Impairment Poor tolerance for HEP, has not done aquatic exercise Short Term Goal (STG) Patient able to tolerate 45 min aquatic exercise program without an increase in pain STG Duration 08/18/19 Ballroom Dancer Goal (LTG) Patient to be independent and compliant with independent aquatic exercise program LTG Duration 09/16/19 Assessment Summary Assessment Pt with forward lean in deep water requiring several cues to correct. Tolerated exercises well but stretching of HS was limited due to mm tightness and guarding. Physical Therapy Plan Frequency and Duration Frequency of Treatment 2x/Week Duration of Treatment 8 wks Plan of Care Start Date 07/19/19 Plan of Care End Date 10/17/19 Therapeutic Interventions Therapeutic Interventions Aquatic Therapy,Home Exercise Program,Joint Mobilizations, Manual Therapy,Neuromuscular Re-education,Patient/Caregiver Education,Self-Care/Home Management,Soft Tissue Mobilization,Therapeutic Activities,Therapeutic Exercises Modalities Cold Pack/Ice Massage,Electric Stimulation,Hot Packs, Iontophoresis,Ultrasound Next Visit Focus/Plan Next Note Type Treatment Note Next Visit Plan Progress with stretching and strengthening as tolerated. Consider manual therapy and Isabella Vargasaz for next treatment.
--- NOTE | 2019-09-10 11:00 | PT.OTN ---
Current Diagnoses Spondylosis without myelopathy or radiculopathy, lumbar region (09/03/19) Lumbago with sciatica, left side (09/03/19) Trochanteric bursitis, right hip (09/03/19) Fibromyalgia (09/03/19) Weakness (09/03/19) Physical Therapy Treatment Note PT-OP-A Visit Information Start: 07/19/19 09:47 Freq: Status: Active Protocol: Document 09/10/19 10:15 CLB (Rec: 09/10/19 14:37 CLB [id number]) Out-Patient Physical Therapy Visit Information Visit Information Visit Start Time 10:15 Visit Stop Time 11:00 Total Visit Minutes 45 Visit Number 6 Number of STAFF ASSISTANT Visits 3 PT-OP-B Current Condition Start: 07/19/19 09:47 Freq: Status: Active Protocol: Document 08/20/19 11:00 SAK (Rec: 08/21/19 08:34 SAK [id number]) Current Condition History of Current Condition Current Complaints LBP, left LE, right LE, right shoulder History of Current Condition Progressive worsening pain starting in LB, extended to entire body. Diagnosed with fibromyalgia 2 months ago, put on Gabapentin (helps a little.). Works at [employer] starting 8 months ago, 10 hr shifts on feet. Sitting is worst. Laying on back most comfortable, sleeps on stomach . Uncomfortable on sides. Prior PT not helpful, made pain worse. Occasional Tramedol shot. Had cortisone shot left hip 07/16/19 with a little relief, next week to have in lumbar spine. PT-OP-C Subjective Start: 07/19/19 09:47 Freq: Status: Active Protocol: Document 09/10/19 10:15 CLB (Rec: 09/10/19 14:37 CLB [id number]) OP-PT Subjective Patient Comments Patient Comments Pt states she is hoping to continue with aquatic therapy as she feels it is the only time she can move pain-free. PT-OP-H Neuro Start: 07/19/19 09:47 Freq: Status: Active Protocol: Document 07/19/19 09:48 SAK (Rec: 07/22/19 11:39 SAK [id number]) Sensation Evaluation Gross Sensation Gross Sensation WNL PT-OP-J Posture/Palpation/Skin Start: 07/19/19 09:47 Freq: Status: Active Protocol: Document 07/19/19 09:48 SAK (Rec: 07/22/19 11:39 SAK [id number]) Posture Evaluation Position Standing Head/C-Spine Posture Forward Head T-Spine Posture Increased Kyphosis L-Spine Posture Increased Lordosis Arm Posture (L) Internally Rotated,(R) Internally Rotated Hip Posture (L) Externally Rotated,(R) Externally Rotated Palpation Assessment Location bilateral hips Palpation Findings Tenderness lumbar spine Palpation Findings Tenderness PT-OP-K Range of Motion Start: 07/19/19 09:47 Freq: Status: Active Protocol: Document 07/19/19 09:48 SAK (Rec: 07/22/19 11:39 SAK [id number]) Lumbar Spine Range of Motion Lumbar Spine Active Flexion 15 Extension 8 Rotation Left 10 Rotation Right 10 Lateral Flexion Left 15 Lateral Flexion Right 15 ROM Limitations Pain Hip Goniometric Range of Motion Hip mayela Hip ROM WFL No Testing Position Supine Flexion w/Knee Flexed 95 Straight Leg Raise 70 Extension 0 Internal Rotation 10 External Rotation 30 Hip ROM Limitations Hip ROM Limitations Pain PT-OP-L Special Tests Start: 07/19/19 09:47 Freq: Status: Active Protocol: Document 07/19/19 09:48 SAK (Rec: 07/22/19 11:39 SAK [id number]) Special Tests Lumbar Spine Special Tests Manual Traction Test Results positive decrease in pain Standing Flexion Test Results All movement through hips Straight Leg Raise Test Results Limited secondary to HS tightness Compression Test Results Negative Slump Test Results Negative Hip Special Tests Piriformis Test Results Mild tightness/tenderness NAILA Test Results Positive left lateral hip pain Knee Special Tests Chio's Test Test Results Positive L PT-OP-M Strength Start: 07/19/19 09:47 Freq: Status: Active Protocol: Document 07/19/19 09:48 SAK (Rec: 07/22/19 11:39 SAK [id number]) Trunk Strength Trunk Manual Muscle Testing Core Stabilization poor Reason Not Measured Pain Hip Strength Hip Manual Muscle Testing Left Flexion (L2) 3+ Fair+ Extension (S1) 3- Fair- Abduction 3+ Fair+ Adduction 3+ Fair+ External Rotation 3+ Fair+ Comments painful Right Flexion (L2) 4 Good Extension (S1) 4- Good- Abduction 4 Good External Rotation 4- Good- Internal Rotation 4 Good Comments painful Knee Strength Knee Manual Muscle Testing mayela Flexion (S2) 4+ Good+ Extension (L3) 4+ Good+ Ankle/Foot Strength Ankle and Foot Manual Muscle Testing mayela Dorsiflexion (L4) 4+ Good+ Plantarflexion (S1) 4+ Good+ PT-OP-Q Treatments Start: 07/19/19 09:47 Freq: Status: Active Protocol: Document 07/19/19 09:48 SAK (Rec: 07/19/19 11:53 SAK [id number]) Self-Care/Home Management Treatment Education Patient Education Body Mechanics,Home Exercise Program Other Education bed positioning for back support and health; issued handouts HEP: TrA activation with handout PT-OP-R Modalities Start: 07/19/19 09:47 Freq: Status: Active Protocol: Document 07/19/19 09:48 SAK (Rec: 07/19/19 11:53 SAK [id number]) Hot Pack/Cold Pack Treatment Hot Pack Location lumbar spine, left IT band Patient Position Hooklying Treatment Duration (minutes) 15 Patient Tolerance Good PT-OP-S Aquatic Treatment Start: 07/19/19 09:47 Freq: Status: Active Protocol: Document 09/10/19 10:15 CLB (Rec: 09/10/19 14:37 CLB [id number]) Aquatics Treatment Pool Entry/Exit Pool Entry/Exit Method Stairs Assistance Independent Water Walking january Water Level Chest Level Level of Assistance Verbal Cues Sideways Water Level Chest Level Level of Assistance Verbal Cues backward Water Level Chest Level Level of Assistance Verbal Cues forward Water Level Chest Level Level of Assistance Verbal Cues Lower Extremity Exercises HS curls Details supported at wall Body Position Standing Water Level Waist Level Reps/Duration 10x bilat circles Water Level Chest Level Reps/Duration 10x large slow, 10x small fast hip ab/ad Body Position Standing Water Level Chest Level Reps/Duration 10x large slow, 10x small fast hip flex/ext Body Position Standing Water Level Chest Level Reps/Duration 10x large slow, 10x small fast squats Water Level Waist Level Reps/Duration 10x Comments cues for muscle activation sequence Lower Extremity Stretches spiderman stretch Water Level Pioneer Reps/Duration 2x Comments wall DKTC, SKTC Body Position Standing Water Level Waist Level Reps/Duration 2x Comments wall quads, hip flex Body Position Standing Water Level Chest Level Equipment Small Noodle Reps/Duration 2x Comments pulsing ITB Body Position Standing Water Level Chest Level Equipment Small Noodle Reps/Duration 2x Comments added torso stretch hamstrings Body Position Standing Water Level Waist Level Equipment wall Reps/Duration 2x Upper Extremity Exercises shoulder flex/ext Body Position Standing Reps/Duration 10x ea Comments mayela and unil shoulder hor ab/ad Details emphasis on core stab Body Position Standing Water Level Chest Level Reps/Duration 10x ea Comments mayela and unil Spinal Exercises DLS Reps/Duration 10 min Comments med barbells, large belt, tether Pioneer Activities Pioneer Activities Bicycle,Bicycle Backwards, Cross Country,Running,Hip Abduction/Adduction Other Activities bicycle holding barbells submerged at sides (med barbells) Equipment no flotation Duration 20 min Other deep water traction Equipment 5# mayela, torres martinez float Reps/Duration 10 min PT-OP-T Assessment and Plan Start: 07/19/19 09:47 Freq: Status: Active Protocol: Document 09/10/19 10:15 CLB (Rec: 09/10/19 14:37 CLB [id number]) Physical Therapy Assessment Goals Four Impairment Oswestry disability index score 54% Short Term Goal (STG) Decrease Owestry Disability index score to no greater than 40% STG Duration 08/18/19 Group Home Goal (LTG) Decrease Oswestry disability index score to no greater than 25% LTG Duration 09/16/19 Three Impairment core and hip weakness with poor dynamic lumbar stabilization Short Term Goal (STG) Patient to be independent and compliant with HEP to address above impairments STG Duration 08/18/19 Group Home Goal (LTG) Patient to demonstrate improvement in muscle strength to at least 4+/5 and demonstrate appropriate lumbar stabilization ability statically and dynamically with functional activities. LTG Duration 09/16/19 Two Impairment Pt experiences pain at work after standing >5 hours Short Term Goal (STG) Patient able to tolerate standing for 4 hours without an increase in pain STG Duration 08/18/19 Flute Grinder Goal (LTG) Pt to tolerate full 8 hours shift with no increase in pain LTG Duration 09/16/19 One Impairment Poor tolerance for HEP, has not done aquatic exercise Short Term Goal (STG) Patient able to tolerate 45 min aquatic exercise program without an increase in pain STG Duration 08/18/19 Group Home Goal (LTG) Patient to be independent and compliant with independent aquatic exercise program LTG Duration 09/16/19 Assessment Summary Assessment Pt requires cues for posture during deep water as pt leans forward but is able to correct posture after being cued. Physical Therapy Plan Frequency and Duration Frequency of Treatment 2x/Week Duration of Treatment 8 wks Plan of Care Start Date 07/19/19 Plan of Care End Date 10/17/19 Next Visit Focus/Plan Next Visit Plan Progress with stretching and strengthening as tolerated. Consider manual therapy and Isabella Ragaz for next treatment.
--- NOTE | 2019-09-12 14:08 | PT.OTN ---
Current Diagnoses Spondylosis without myelopathy or radiculopathy, lumbar region (09/10/19) Lumbago with sciatica, left side (09/10/19) Trochanteric bursitis, right hip (09/10/19) Fibromyalgia (09/10/19) Weakness (09/10/19) Physical Therapy Treatment Note PT-OP-A Visit Information Start: 07/19/19 09:47 Freq: Status: Active Protocol: Document 09/12/19 10:15 MARVIN (Rec: 09/12/19 14:08 LJ [id number]) Out-Patient Physical Therapy Visit Information Visit Information Visit Start Time 10:15 Visit Stop Time 11:00 Total Visit Minutes 45 Visit Number 7 Number of PROCESS ENVIRONMENTAL TECHNICIAN Visits 4 PT-OP-B Current Condition Start: 07/19/19 09:47 Freq: Status: Active Protocol: Document 08/20/19 11:00 SAK (Rec: 08/21/19 08:34 SAK [id number]) Current Condition History of Current Condition Current Complaints LBP, left LE, right LE, right shoulder History of Current Condition Progressive worsening pain starting in LB, extended to entire body. Diagnosed with fibromyalgia 2 months ago, put on Gabapentin (helps a little.). Works at [employer] starting 8 months ago, 10 hr shifts on feet. Sitting is worst. Laying on back most comfortable, sleeps on stomach . Uncomfortable on sides. Prior PT not helpful, made pain worse. Occasional Tramedol shot. Had cortisone shot left hip 07/16/19 with a little relief, next week to have in lumbar spine. PT-OP-C Subjective Start: 07/19/19 09:47 Freq: Status: Active Protocol: Document 09/12/19 10:15 MARVIN (Rec: 09/12/19 14:08 LJ [id number]) OP-PT Subjective Patient Comments Patient Comments Pt states she wants to continue aquatic exercise after she is done with therapy . She feels it is working and makes her relax and feel better. PT-OP-H Neuro Start: 07/19/19 09:47 Freq: Status: Active Protocol: Document 07/19/19 09:48 SAK (Rec: 07/22/19 11:39 SAK [id number]) Sensation Evaluation Gross Sensation Gross Sensation WNL PT-OP-J Posture/Palpation/Skin Start: 07/19/19 09:47 Freq: Status: Active Protocol: Document 07/19/19 09:48 SAK (Rec: 07/22/19 11:39 SAK [id number]) Posture Evaluation Position Standing Head/C-Spine Posture Forward Head T-Spine Posture Increased Kyphosis L-Spine Posture Increased Lordosis Arm Posture (L) Internally Rotated,(R) Internally Rotated Hip Posture (L) Externally Rotated,(R) Externally Rotated Palpation Assessment Location bilateral hips Palpation Findings Tenderness lumbar spine Palpation Findings Tenderness PT-OP-K Range of Motion Start: 07/19/19 09:47 Freq: Status: Active Protocol: Document 07/19/19 09:48 SAK (Rec: 07/22/19 11:39 SAK [id number]) Lumbar Spine Range of Motion Lumbar Spine Active Flexion 15 Extension 8 Rotation Left 10 Rotation Right 10 Lateral Flexion Left 15 Lateral Flexion Right 15 ROM Limitations Pain Hip Goniometric Range of Motion Hip mayela Hip ROM WFL No Testing Position Supine Flexion w/Knee Flexed 95 Straight Leg Raise 70 Extension 0 Internal Rotation 10 External Rotation 30 Hip ROM Limitations Hip ROM Limitations Pain PT-OP-L Special Tests Start: 07/19/19 09:47 Freq: Status: Active Protocol: Document 07/19/19 09:48 SAK (Rec: 07/22/19 11:39 SAK [id number]) Special Tests Lumbar Spine Special Tests Manual Traction Test Results positive decrease in pain Standing Flexion Test Results All movement through hips Straight Leg Raise Test Results Limited secondary to HS tightness Compression Test Results Negative Slump Test Results Negative Hip Special Tests Piriformis Test Results Mild tightness/tenderness NAILA Test Results Positive left lateral hip pain Knee Special Tests Chio's Test Test Results Positive L PT-OP-M Strength Start: 07/19/19 09:47 Freq: Status: Active Protocol: Document 07/19/19 09:48 SAK (Rec: 07/22/19 11:39 SAK [id number]) Trunk Strength Trunk Manual Muscle Testing Core Stabilization poor Reason Not Measured Pain Hip Strength Hip Manual Muscle Testing Left Flexion (L2) 3+ Fair+ Extension (S1) 3- Fair- Abduction 3+ Fair+ Adduction 3+ Fair+ External Rotation 3+ Fair+ Comments painful Right Flexion (L2) 4 Good Extension (S1) 4- Good- Abduction 4 Good External Rotation 4- Good- Internal Rotation 4 Good Comments painful Knee Strength Knee Manual Muscle Testing mayela Flexion (S2) 4+ Good+ Extension (L3) 4+ Good+ Ankle/Foot Strength Ankle and Foot Manual Muscle Testing mayela Dorsiflexion (L4) 4+ Good+ Plantarflexion (S1) 4+ Good+ PT-OP-Q Treatments Start: 07/19/19 09:47 Freq: Status: Active Protocol: Document 07/19/19 09:48 SAK (Rec: 07/19/19 11:53 SAK [id number]) Self-Care/Home Management Treatment Education Patient Education Body Mechanics,Home Exercise Program Other Education bed positioning for back support and health; issued handouts HEP: TrA activation with handout PT-OP-R Modalities Start: 07/19/19 09:47 Freq: Status: Active Protocol: Document 07/19/19 09:48 SAK (Rec: 07/19/19 11:53 SAK [id number]) Hot Pack/Cold Pack Treatment Hot Pack Location lumbar spine, left IT band Patient Position Hooklying Treatment Duration (minutes) 15 Patient Tolerance Good PT-OP-S Aquatic Treatment Start: 07/19/19 09:47 Freq: Status: Active Protocol: Document 09/12/19 10:15 LJ (Rec: 09/12/19 14:08 LJ [id number]) Aquatics Treatment Pool Entry/Exit Pool Entry/Exit Method Stairs Assistance Independent Water Walking january Water Level Chest Level Level of Assistance Verbal Cues Sideways Water Level Chest Level Level of Assistance Verbal Cues backward Water Level Chest Level Level of Assistance Verbal Cues forward Water Level Chest Level Level of Assistance Verbal Cues Lower Extremity Exercises HS curls Details supported at wall Body Position Standing Water Level Waist Level Reps/Duration 10x bilat circles Water Level Chest Level Reps/Duration 10x large slow, 10x small fast hip ab/ad Body Position Standing Water Level Chest Level Reps/Duration 10x large slow, 10x small fast hip flex/ext Body Position Standing Water Level Chest Level Reps/Duration 10x large slow, 10x small fast squats Water Level Waist Level Reps/Duration 10x Comments cues for muscle activation sequence Lower Extremity Stretches spiderman stretch Water Level [place] Reps/Duration 2x Comments wall DKTC, SKTC Body Position Standing Water Level Waist Level Reps/Duration 2x Comments wall quads, hip flex Body Position Standing Water Level Chest Level Equipment Small Noodle Reps/Duration 2x Comments pulsing ITB Body Position Standing Water Level Chest Level Equipment Small Noodle Reps/Duration 2x Comments added torso stretch hamstrings Body Position Standing Water Level Waist Level Equipment wall Reps/Duration 2x [place] Activities [place] Activities Bicycle,Bicycle Backwards, Cross Country,Running,Hip Abduction/Adduction Duration 15 min Chi Chi Duration (Minutes) 18 Comments emphasis on deep breathing and relaxation PT-OP-T Assessment and Plan Start: 07/19/19 09:47 Freq: Status: Active Protocol: Document 09/12/19 10:15 MARVIN (Rec: 09/12/19 14:08 MARVIN [id number]) Physical Therapy Assessment Goals Four Impairment Oswestry disability index score 54% Short Term Goal (STG) Decrease Owestry Disability index score to no greater than 40% STG Duration 08/18/19 Mcc Goal (LTG) Decrease Oswestry disability index score to no greater than 25% LTG Duration 09/16/19 Three Impairment core and hip weakness with poor dynamic lumbar stabilization Short Term Goal (STG) Patient to be independent and compliant with HEP to address above impairments STG Duration 08/18/19 Vacuum Cleaner Mechanic Goal (LTG) Patient to demonstrate improvement in muscle strength to at least 4+/5 and demonstrate appropriate lumbar stabilization ability statically and dynamically with functional activities. LTG Duration 09/16/19 Two Impairment Pt experiences pain at work after standing >5 hours Short Term Goal (STG) Patient able to tolerate standing for 4 hours without an increase in pain STG Duration 08/18/19 Mcc Goal (LTG) Pt to tolerate full 8 hours shift with no increase in pain LTG Duration 09/16/19 One Impairment Poor tolerance for HEP, has not done aquatic exercise Short Term Goal (STG) Patient able to tolerate 45 min aquatic exercise program without an increase in pain STG Duration 08/18/19 Mcc Goal (LTG) Patient to be independent and compliant with independent aquatic exercise program LTG Duration 09/16/19 Assessment Summary Assessment Pt requires cues for posture during deep water as pt leans forward but is able to correct posture after being cued. Good response to Chi with pt able to relax and get into deeper stretches. Physical Therapy Plan Frequency and Duration Frequency of Treatment 2x/Week Duration of Treatment 8 wks Plan of Care Start Date 07/19/19 Plan of Care End Date 10/17/19 Therapeutic Interventions Therapeutic Interventions Aquatic Therapy,Home Exercise Program,Joint Mobilizations, Manual Therapy,Neuromuscular Re-education,Patient/Caregiver Education,Self-Care/Home Management,Soft Tissue Mobilization,Therapeutic Activities,Therapeutic Exercises Modalities Cold Pack/Ice Massage,Electric Stimulation,Hot Packs, Iontophoresis,Ultrasound Next Visit Focus/Plan Next Note Type Treatment Note Next Visit Plan Continue progressing exercises as tolerated combining deep water intervals and Chi with stretching at end of session.
--- NOTE | 2019-09-12 14:11 | PT.OTN ---
Current Diagnoses Spondylosis without myelopathy or radiculopathy, lumbar region (09/10/19) Lumbago with sciatica, left side (09/10/19) Trochanteric bursitis, right hip (09/10/19) Fibromyalgia (09/10/19) Weakness (09/10/19) Physical Therapy Treatment Note PT-OP-A Visit Information Start: 07/19/19 09:47 Freq: Status: Active Protocol: Document 09/12/19 10:15 MARVIN (Rec: 09/12/19 14:08 LJ [id number]) Out-Patient Physical Therapy Visit Information Visit Information Visit Start Time 10:15 Visit Stop Time 11:00 Total Visit Minutes 45 Visit Number 7 Number of PAYROLL SERVICES ANALYST Visits 4 PT-OP-B Current Condition Start: 07/19/19 09:47 Freq: Status: Active Protocol: Document 08/20/19 11:00 SAK (Rec: 08/21/19 08:34 SAK [id number]) Current Condition History of Current Condition Current Complaints LBP, left LE, right LE, right shoulder History of Current Condition Progressive worsening pain starting in LB, extended to entire body. Diagnosed with fibromyalgia 2 months ago, put on Gabapentin (helps a little.). Works at [employer] starting 8 months ago, 10 hr shifts on feet. Sitting is worst. Laying on back most comfortable, sleeps on stomach . Uncomfortable on sides. Prior PT not helpful, made pain worse. Occasional Tramedol shot. Had cortisone shot left hip 07/16/19 with a little relief, next week to have in lumbar spine. PT-OP-C Subjective Start: 07/19/19 09:47 Freq: Status: Active Protocol: Document 09/12/19 10:15 MARVIN (Rec: 09/12/19 14:08 LJ [id number]) OP-PT Subjective Patient Comments Patient Comments Pt states she wants to continue aquatic exercise after she is done with therapy . She feels it is working and makes her relax and feel better. PT-OP-H Neuro Start: 07/19/19 09:47 Freq: Status: Active Protocol: Document 07/19/19 09:48 SAK (Rec: 07/22/19 11:39 SAK [id number]) Sensation Evaluation Gross Sensation Gross Sensation WNL PT-OP-J Posture/Palpation/Skin Start: 07/19/19 09:47 Freq: Status: Active Protocol: Document 07/19/19 09:48 SAK (Rec: 07/22/19 11:39 SAK [id number]) Posture Evaluation Position Standing Head/C-Spine Posture Forward Head T-Spine Posture Increased Kyphosis L-Spine Posture Increased Lordosis Arm Posture (L) Internally Rotated,(R) Internally Rotated Hip Posture (L) Externally Rotated,(R) Externally Rotated Palpation Assessment Location bilateral hips Palpation Findings Tenderness lumbar spine Palpation Findings Tenderness PT-OP-K Range of Motion Start: 07/19/19 09:47 Freq: Status: Active Protocol: Document 07/19/19 09:48 SAK (Rec: 07/22/19 11:39 SAK [id number]) Lumbar Spine Range of Motion Lumbar Spine Active Flexion 15 Extension 8 Rotation Left 10 Rotation Right 10 Lateral Flexion Left 15 Lateral Flexion Right 15 ROM Limitations Pain Hip Goniometric Range of Motion Hip mayela Hip ROM WFL No Testing Position Supine Flexion w/Knee Flexed 95 Straight Leg Raise 70 Extension 0 Internal Rotation 10 External Rotation 30 Hip ROM Limitations Hip ROM Limitations Pain PT-OP-L Special Tests Start: 07/19/19 09:47 Freq: Status: Active Protocol: Document 07/19/19 09:48 SAK (Rec: 07/22/19 11:39 SAK [id number]) Special Tests Lumbar Spine Special Tests Manual Traction Test Results positive decrease in pain Standing Flexion Test Results All movement through hips Straight Leg Raise Test Results Limited secondary to HS tightness Compression Test Results Negative Slump Test Results Negative Hip Special Tests Piriformis Test Results Mild tightness/tenderness NAILA Test Results Positive left lateral hip pain Knee Special Tests Chio's Test Test Results Positive L PT-OP-M Strength Start: 07/19/19 09:47 Freq: Status: Active Protocol: Document 07/19/19 09:48 SAK (Rec: 07/22/19 11:39 SAK [id number]) Trunk Strength Trunk Manual Muscle Testing Core Stabilization poor Reason Not Measured Pain Hip Strength Hip Manual Muscle Testing Left Flexion (L2) 3+ Fair+ Extension (S1) 3- Fair- Abduction 3+ Fair+ Adduction 3+ Fair+ External Rotation 3+ Fair+ Comments painful Right Flexion (L2) 4 Good Extension (S1) 4- Good- Abduction 4 Good External Rotation 4- Good- Internal Rotation 4 Good Comments painful Knee Strength Knee Manual Muscle Testing mayela Flexion (S2) 4+ Good+ Extension (L3) 4+ Good+ Ankle/Foot Strength Ankle and Foot Manual Muscle Testing mayela Dorsiflexion (L4) 4+ Good+ Plantarflexion (S1) 4+ Good+ PT-OP-Q Treatments Start: 07/19/19 09:47 Freq: Status: Active Protocol: Document 07/19/19 09:48 SAK (Rec: 07/19/19 11:53 SAK [id number]) Self-Care/Home Management Treatment Education Patient Education Body Mechanics,Home Exercise Program Other Education bed positioning for back support and health; issued handouts HEP: TrA activation with handout PT-OP-R Modalities Start: 07/19/19 09:47 Freq: Status: Active Protocol: Document 07/19/19 09:48 SAK (Rec: 07/19/19 11:53 SAK [id number]) Hot Pack/Cold Pack Treatment Hot Pack Location lumbar spine, left IT band Patient Position Hooklying Treatment Duration (minutes) 15 Patient Tolerance Good PT-OP-S Aquatic Treatment Start: 07/19/19 09:47 Freq: Status: Active Protocol: Document 09/12/19 10:15 LJ (Rec: 09/12/19 14:08 LJ [id number]) Aquatics Treatment Pool Entry/Exit Pool Entry/Exit Method Stairs Assistance Independent Water Walking january Water Level Chest Level Level of Assistance Verbal Cues Sideways Water Level Chest Level Level of Assistance Verbal Cues backward Water Level Chest Level Level of Assistance Verbal Cues forward Water Level Chest Level Level of Assistance Verbal Cues Lower Extremity Exercises HS curls Details supported at wall Body Position Standing Water Level Waist Level Reps/Duration 10x bilat circles Water Level Chest Level Reps/Duration 10x large slow, 10x small fast hip ab/ad Body Position Standing Water Level Chest Level Reps/Duration 10x large slow, 10x small fast hip flex/ext Body Position Standing Water Level Chest Level Reps/Duration 10x large slow, 10x small fast squats Water Level Waist Level Reps/Duration 10x Comments cues for muscle activation sequence Lower Extremity Stretches spiderman stretch Water Level [place] Reps/Duration 2x Comments wall DKTC, SKTC Body Position Standing Water Level Waist Level Reps/Duration 2x Comments wall quads, hip flex Body Position Standing Water Level Chest Level Equipment Small Noodle Reps/Duration 2x Comments pulsing ITB Body Position Standing Water Level Chest Level Equipment Small Noodle Reps/Duration 2x Comments added torso stretch hamstrings Body Position Standing Water Level Waist Level Equipment wall Reps/Duration 2x [place] Activities [place] Activities Bicycle,Bicycle Backwards, Cross Country,Running,Hip Abduction/Adduction Duration 15 min Chi Chi Duration (Minutes) 18 Comments emphasis on deep breathing and relaxation PT-OP-T Assessment and Plan Start: 07/19/19 09:47 Freq: Status: Active Protocol: Document 09/12/19 10:15 MARVIN (Rec: 09/12/19 14:08 MARVIN [id number]) Physical Therapy Assessment Goals Four Impairment Oswestry disability index score 54% Short Term Goal (STG) Decrease [place] Disability index score to no greater than 40% STG Duration 08/18/19 Senior Care Goal (LTG) Decrease Oswestry disability index score to no greater than 25% LTG Duration 09/16/19 Three Impairment core and hip weakness with poor dynamic lumbar stabilization Short Term Goal (STG) Patient to be independent and compliant with HEP to address above impairments STG Duration 08/18/19 Rail Car Maintenance Mechanic Goal (LTG) Patient to demonstrate improvement in muscle strength to at least 4+/5 and demonstrate appropriate lumbar stabilization ability statically and dynamically with functional activities. LTG Duration 09/16/19 Two Impairment Pt experiences pain at work after standing >5 hours Short Term Goal (STG) Patient able to tolerate standing for 4 hours without an increase in pain STG Duration 08/18/19 Senior Care Goal (LTG) Pt to tolerate full 8 hours shift with no increase in pain LTG Duration 09/16/19 One Impairment Poor tolerance for HEP, has not done aquatic exercise Short Term Goal (STG) Patient able to tolerate 45 min aquatic exercise program without an increase in pain STG Duration 08/18/19 Senior Care Goal (LTG) Patient to be independent and compliant with independent aquatic exercise program LTG Duration 09/16/19 Assessment Summary Assessment Pt requires cues for posture during deep water as pt leans forward but is able to correct posture after being cued. Good response to Chi with pt able to relax and get into deeper stretches. Physical Therapy Plan Frequency and Duration Frequency of Treatment 2x/Week Duration of Treatment 8 wks Plan of Care Start Date 07/19/19 Plan of Care End Date 10/17/19 Therapeutic Interventions Therapeutic Interventions Aquatic Therapy,Home Exercise Program,Joint Mobilizations, Manual Therapy,Neuromuscular Re-education,Patient/Caregiver Education,Self-Care/Home Management,Soft Tissue Mobilization,Therapeutic Activities,Therapeutic Exercises Modalities Cold Pack/Ice Massage,Electric Stimulation,Hot Packs, Iontophoresis,Ultrasound Next Visit Focus/Plan Next Note Type Treatment Note Next Visit Plan Pt has no more appointments scheduled. Will D/C as of today. Pt will attend community based exercise classes and exercise at the pool on her own.
--- NOTE | 2019-09-12 14:14 | PT.OTN ---
Current Diagnoses Spondylosis without myelopathy or radiculopathy, lumbar region (09/10/19) Lumbago with sciatica, left side (09/10/19) Trochanteric bursitis, right hip (09/10/19) Fibromyalgia (09/10/19) Weakness (09/10/19) Physical Therapy Treatment Note PT-OP-A Visit Information Start: 07/19/19 09:47 Freq: Status: Active Protocol: Document 09/12/19 10:15 MARVIN (Rec: 09/12/19 14:08 LJ [id number]) Out-Patient Physical Therapy Visit Information Visit Information Visit Start Time 10:15 Visit Stop Time 11:00 Total Visit Minutes 45 Visit Number 7 Number of GREY PERCHER Visits 4 PT-OP-B Current Condition Start: 07/19/19 09:47 Freq: Status: Active Protocol: Document 08/20/19 11:00 SAK (Rec: 08/21/19 08:34 SAK [id number]) Current Condition History of Current Condition Current Complaints LBP, left LE, right LE, right shoulder History of Current Condition Progressive worsening pain starting in LB, extended to entire body. Diagnosed with fibromyalgia 2 months ago, put on Gabapentin (helps a little.). Works at [employer] starting 8 months ago, 10 hr shifts on feet. Sitting is worst. Laying on back most comfortable, sleeps on stomach . Uncomfortable on sides. Prior PT not helpful, made pain worse. Occasional Tramedol shot. Had cortisone shot left hip 07/16/19 with a little relief, next week to have in lumbar spine. PT-OP-C Subjective Start: 07/19/19 09:47 Freq: Status: Active Protocol: Document 09/12/19 10:15 MARVIN (Rec: 09/12/19 14:08 LJ [id number]) OP-PT Subjective Patient Comments Patient Comments Pt states she wants to continue aquatic exercise after she is done with therapy . She feels it is working and makes her relax and feel better. PT-OP-H Neuro Start: 07/19/19 09:47 Freq: Status: Active Protocol: Document 07/19/19 09:48 SAK (Rec: 07/22/19 11:39 SAK [id number]) Sensation Evaluation Gross Sensation Gross Sensation WNL PT-OP-J Posture/Palpation/Skin Start: 07/19/19 09:47 Freq: Status: Active Protocol: Document 07/19/19 09:48 SAK (Rec: 07/22/19 11:39 SAK [id number]) Posture Evaluation Position Standing Head/C-Spine Posture Forward Head T-Spine Posture Increased Kyphosis L-Spine Posture Increased Lordosis Arm Posture (L) Internally Rotated,(R) Internally Rotated Hip Posture (L) Externally Rotated,(R) Externally Rotated Palpation Assessment Location bilateral hips Palpation Findings Tenderness lumbar spine Palpation Findings Tenderness PT-OP-K Range of Motion Start: 07/19/19 09:47 Freq: Status: Active Protocol: Document 07/19/19 09:48 SAK (Rec: 07/22/19 11:39 SAK [id number]) Lumbar Spine Range of Motion Lumbar Spine Active Flexion 15 Extension 8 Rotation Left 10 Rotation Right 10 Lateral Flexion Left 15 Lateral Flexion Right 15 ROM Limitations Pain Hip Goniometric Range of Motion Hip mayela Hip ROM WFL No Testing Position Supine Flexion w/Knee Flexed 95 Straight Leg Raise 70 Extension 0 Internal Rotation 10 External Rotation 30 Hip ROM Limitations Hip ROM Limitations Pain PT-OP-L Special Tests Start: 07/19/19 09:47 Freq: Status: Active Protocol: Document 07/19/19 09:48 SAK (Rec: 07/22/19 11:39 SAK [id number]) Special Tests Lumbar Spine Special Tests Manual Traction Test Results positive decrease in pain Standing Flexion Test Results All movement through hips Straight Leg Raise Test Results Limited secondary to HS tightness Compression Test Results Negative Slump Test Results Negative Hip Special Tests Piriformis Test Results Mild tightness/tenderness NAILA Test Results Positive left lateral hip pain Knee Special Tests Chio's Test Test Results Positive L PT-OP-M Strength Start: 07/19/19 09:47 Freq: Status: Active Protocol: Document 07/19/19 09:48 SAK (Rec: 07/22/19 11:39 SAK [id number]) Trunk Strength Trunk Manual Muscle Testing Core Stabilization poor Reason Not Measured Pain Hip Strength Hip Manual Muscle Testing Left Flexion (L2) 3+ Fair+ Extension (S1) 3- Fair- Abduction 3+ Fair+ Adduction 3+ Fair+ External Rotation 3+ Fair+ Comments painful Right Flexion (L2) 4 Good Extension (S1) 4- Good- Abduction 4 Good External Rotation 4- Good- Internal Rotation 4 Good Comments painful Knee Strength Knee Manual Muscle Testing mayela Flexion (S2) 4+ Good+ Extension (L3) 4+ Good+ Ankle/Foot Strength Ankle and Foot Manual Muscle Testing mayela Dorsiflexion (L4) 4+ Good+ Plantarflexion (S1) 4+ Good+ PT-OP-Q Treatments Start: 07/19/19 09:47 Freq: Status: Active Protocol: Document 07/19/19 09:48 SAK (Rec: 07/19/19 11:53 SAK [id number]) Self-Care/Home Management Treatment Education Patient Education Body Mechanics,Home Exercise Program Other Education bed positioning for back support and health; issued handouts HEP: TrA activation with handout PT-OP-R Modalities Start: 07/19/19 09:47 Freq: Status: Active Protocol: Document 07/19/19 09:48 SAK (Rec: 07/19/19 11:53 SAK [id number]) Hot Pack/Cold Pack Treatment Hot Pack Location lumbar spine, left IT band Patient Position Hooklying Treatment Duration (minutes) 15 Patient Tolerance Good PT-OP-S Aquatic Treatment Start: 07/19/19 09:47 Freq: Status: Active Protocol: Document 09/12/19 10:15 LJ (Rec: 09/12/19 14:08 LJ [id number]) Aquatics Treatment Pool Entry/Exit Pool Entry/Exit Method Stairs Assistance Independent Water Walking january Water Level Chest Level Level of Assistance Verbal Cues Sideways Water Level Chest Level Level of Assistance Verbal Cues backward Water Level Chest Level Level of Assistance Verbal Cues forward Water Level Chest Level Level of Assistance Verbal Cues Lower Extremity Exercises HS curls Details supported at wall Body Position Standing Water Level Waist Level Reps/Duration 10x bilat circles Water Level Chest Level Reps/Duration 10x large slow, 10x small fast hip ab/ad Body Position Standing Water Level Chest Level Reps/Duration 10x large slow, 10x small fast hip flex/ext Body Position Standing Water Level Chest Level Reps/Duration 10x large slow, 10x small fast squats Water Level Waist Level Reps/Duration 10x Comments cues for muscle activation sequence Lower Extremity Stretches spiderman stretch Water Level [place] Reps/Duration 2x Comments wall DKTC, SKTC Body Position Standing Water Level Waist Level Reps/Duration 2x Comments wall quads, hip flex Body Position Standing Water Level Chest Level Equipment Small Noodle Reps/Duration 2x Comments pulsing ITB Body Position Standing Water Level Chest Level Equipment Small Noodle Reps/Duration 2x Comments added torso stretch hamstrings Body Position Standing Water Level Waist Level Equipment wall Reps/Duration 2x [place] Activities [place] Activities Bicycle,Bicycle Backwards, Cross Country,Running,Hip Abduction/Adduction Duration 15 min Chi Chi Duration (Minutes) 18 Comments emphasis on deep breathing and relaxation PT-OP-T Assessment and Plan Start: 07/19/19 09:47 Freq: Status: Active Protocol: Document 09/12/19 10:15 MARVIN (Rec: 09/12/19 14:08 MARVIN [id number]) Physical Therapy Assessment Goals Four Impairment Oswestry disability index score 54% Short Term Goal (STG) Decrease [place] Disability index score to no greater than 40% STG Duration 08/18/19 Mcc Goal (LTG) Decrease Oswestry disability index score to no greater than 25% LTG Duration 09/16/19 Three Impairment core and hip weakness with poor dynamic lumbar stabilization Short Term Goal (STG) Patient to be independent and compliant with HEP to address above impairments STG Duration 08/18/19 Configuration Management Administrator Goal (LTG) Patient to demonstrate improvement in muscle strength to at least 4+/5 and demonstrate appropriate lumbar stabilization ability statically and dynamically with functional activities. LTG Duration 09/16/19 Two Impairment Pt experiences pain at work after standing >5 hours Short Term Goal (STG) Patient able to tolerate standing for 4 hours without an increase in pain STG Duration 08/18/19 Mcc Goal (LTG) Pt to tolerate full 8 hours shift with no increase in pain LTG Duration 09/16/19 One Impairment Poor tolerance for HEP, has not done aquatic exercise Short Term Goal (STG) Patient able to tolerate 45 min aquatic exercise program without an increase in pain STG Duration 08/18/19 Mcc Goal (LTG) Patient to be independent and compliant with independent aquatic exercise program LTG Duration 09/16/19 Assessment Summary Assessment Pt requires cues for posture during deep water as pt leans forward but is able to correct posture after being cued. Good response to Chi with pt able to relax and get into deeper stretches. Physical Therapy Plan Frequency and Duration Frequency of Treatment 2x/Week Duration of Treatment 8 wks Plan of Care Start Date 07/19/19 Plan of Care End Date 10/17/19 Therapeutic Interventions Therapeutic Interventions Aquatic Therapy,Home Exercise Program,Joint Mobilizations, Manual Therapy,Neuromuscular Re-education,Patient/Caregiver Education,Self-Care/Home Management,Soft Tissue Mobilization,Therapeutic Activities,Therapeutic Exercises Modalities Cold Pack/Ice Massage,Electric Stimulation,Hot Packs, Iontophoresis,Ultrasound Next Visit Focus/Plan Next Note Type Treatment Note Next Visit Plan Pt has no more appointments scheduled. POC ends 10/17/19. Schedule more appointments and continue to progress pt as tolerated with core exercises and stretching utilizing Chi and Isabella Chiang
== END 2019-09-13 12:58 ==
LOC: PHYS 10:15
PROVIDERS: PCP Family Medicine; Visit Provider Physical Medicine & Rehabilitation Pain Medicine
DX: M54.42 Lumbago with sciatica, left side (principal); M47.816 Spondylosis without myelopathy or radiculopathy, lumbar region; M79.7 Fibromyalgia; M70.61 Trochanteric bursitis, right hip; R53.1 Weakness
CPT/HCPCS: 97010; 97113; 97535

== ENCOUNTER → 2020-01-04 10:37 | Outpatient (CLI) | payer OTHER, SELFPAY ==
[2020-01-04 11:34] LABS: Alanine Aminotransferase 24 IU/L (<35); Albumin 4.4 g/dL (3.5-5.0); Albumin Globulin Ratio 1.5 (1.0-2.8); Alkaline Phosphatase 65 U/L (38-126); Aspartate Aminotransferase 22 IU/L (14-36); Bilirubin Total 0.3 mg/dL (0.2-1.3); Bilirubin Unconjugated 0.2 mg/dL (0.0-1.1); HEMOLYSIS < 15 (0-50); Total Protein 7.4 g/dL (6.3-8.2)
== END ==
PROVIDERS: PCP Family Medicine; Referring Provider Family Medicine; Visit Provider Family Medicine
DX: B35.1 Tinea unguium (principal)
CPT/HCPCS: 36415; 80076

== ENCOUNTER → 2020-01-16 11:50 | Outpatient (CLI) | payer OTHER, SELFPAY ==
[2020-01-16 12:51] LABS: UR Morphine/Opiate cutoff 300 Negative (Negative); Ur Creatinine Normal (Normal); Ur Specific Gravity Normal (Normal); Urine Amphetamines Negative (Negative); Urine Barbiturates Negative (Negative); Urine Benzodiazepines Negative (Negative); Urine Cocaine Negative (Negative); Urine MDMA Negative (Negative); Urine Methadone Negative (Negative); Urine Methamphetamines Negative (Negative); Urine Oxycodone Negative (Negative); Urine Phencyclidine Negative (Negative); Urine Tetrahydrocannabinol Negative (Negative); Urine Tricyclic Antidepressant Positive (Negative); Urine pH Normal (Normal)
== END ==
PROVIDERS: PCP Family Medicine; Referring Provider Psychiatry & Neurology Psychiatry; Visit Provider Psychiatry & Neurology Psychiatry
DX: F41.1 Generalized anxiety disorder (principal); F43.10 Post-traumatic stress disorder, unspecified; F90.9 Attention-deficit hyperactivity disorder, unspecified type; G47.00 Insomnia, unspecified
CPT/HCPCS: 36415; 80305

== ENCOUNTER → 2020-09-25 16:34 | Outpatient (CLI) | payer OTHER, SELFPAY ==
--- NOTE | 2020-09-25 16:35 | DI.MG.S_ITS ---
BILATERAL DIGITAL SCREENING MAMMOGRAM 3D/2D WITH CAD: 09/25/2020 CLINICAL: Routine screening. Comparison is made to exams dated: 05/18/2019 mammogram, 10/13/2017 mammogram - [facility], and 09/14/2012 mammogram - [facility]. The tissue of both breasts is heterogeneously dense. This may lower the sensitivity of mammography. Current study was also evaluated with a Computer Aided Detection (CAD) system. There are benign calcifications in the right breast. No significant masses, calcifications, or other findings are seen in either breast. There has been no significant interval change. IMPRESSION: BENIGN There is no mammographic evidence of malignancy. A 1 year screening mammogram is recommended. This exam was interpreted at Station ID: [id number]. NOTE: For mammograms, a report in lay terms will be sent to the patient. Approximately 15% of breast malignancies will not be visualized mammographically. In the management of a palpable breast mass, a negative mammogram must not discourage biopsy of a clinically suspicious lesion. Electronically Signed By: Rodrigo liu/noble:09/26/2020 08:18:15 letter sent: Normal Exam ACR BI-RADS Category 2: Benign Finding(s) [id number]
== END ==
PROVIDERS: PCP Family Medicine; Referring Provider Family Medicine; Visit Provider Family Medicine
DX: Z12.31 Encounter for screening mammogram for malignant neoplasm of breast (principal)
CPT/HCPCS: 77063; 77067

== ENCOUNTER → 2020-10-17 11:30 | Outpatient (CLI) | payer OTHER, SELFPAY ==
[2020-10-17 12:03] LABS: Add Manual Diff / Slide Review NO; Basophils Absolute Auto 0 /uL (0-100); Basophils Percent Auto 0.3 % (0-2); Eosinophils Absolute Auto 100 /uL (0-450); Eosinophils Percent Auto 1.6 % (2-4); Hematocrit 43.1 % (36-46); Hemoglobin 14.3 g/dL (12.0-16.0); Lymphocytes Absolute Auto 2000 /uL (1100-4500); Lymphocytes Percent Auto 25.8 % (25-40); Mean Corpuscular HGB Conc 33.2 % (30-36); Mean Corpuscular Hemoglobin 31.9 PG (26-34); Mean Corpuscular Volume 96.3 fL (80-100); Monocytes Absolute Auto 900 /uL (0-900); Monocytes Percent Auto 11.2 % (3-14); Neutrophils Absolute Auto 4700 /uL (1500-7000); Neutrophils Percent Auto 61.1 % (50-75); Platelet Count 241 X10^3/uL (150-400); Red Blood Cell Count 4.47 X10^6/uL (4.0-5.2); Red Cell Distribution Width 13.7 % (11.6-14.8); White Blood Cell Count 7.7 X10^3/uL (4.5-11.0)
[2020-10-17 12:48] LABS: Alanine Aminotransferase 17 IU/L (<35); Albumin 4.1 g/dL (3.5-5.0); Albumin Globulin Ratio 1.4 (1.0-2.8); Alkaline Phosphatase 69 U/L (38-126); Aspartate Aminotransferase 22 IU/L (14-36); BUN Creatinine Ratio 25.9 (6-22); Bilirubin Total 0.4 mg/dL (0.2-1.3); Blood Urea Nitrogen 14 mg/dL (7-17); Carbon Dioxide 30 mmol/L (22-32); Chloride 105 mmol/L (98-107); Cholesterol 166 mg/dL (140-199); Estimated Glomerular Filt Rate > 60.0 mL/min (>60); Globulin 2.9 g/dL (1.7-4.1); Glucose 110 mg/dL (70-100); HDL Cholesterol 40 mg/dL (40-60); HEMOLYSIS < 15 (0-50); LDL Cholesterol Calculated 101 mg/dL (<100); Potassium 4.2 mmol/L (3.4-5.1); Sodium 139 mmol/L (137-145); Triglycerides 124 mg/dL (35-150)
[2020-10-17 13:18] LABS: Thyroid Stimulating Hormone 1.22 uIU/mL (0.47-4.68)
== END ==
PROVIDERS: PCP Family Medicine; Referring Provider Family Medicine; Visit Provider Family Medicine
DX: L65.9 Nonscarring hair loss, unspecified (principal); E78.00 Pure hypercholesterolemia, unspecified; D64.9 Anemia, unspecified
CPT/HCPCS: 36415; 80053; 80061; 84443; 85025

== ENCOUNTER → 2021-03-11 10:51 | Outpatient (CLI) | payer OTHER, SELFPAY ==
--- NOTE | 2021-03-11 | DI.MRI.S_ITS ---
PROCEDURE: MR LUMBAR SPINE WO CON INDICATIONS: Other biomechanical lesions of lumbar region TECHNIQUE: Noncontrast sagittal T1 spin echo and T2 fast echo, sagittal STIR, axial T1 and T2 fast spin echo through the lumbar spine. In cases with scoliosis, additional coronal T2 fast spin echo may be performed. COMPARISON: [facility], CR, XR LUMBAR SPINE WITH OLBIQUES PLUS FLEXION EXTENSION, 02/16/2021, 11:21. [facility], , MR LUMBAR SPINE WO CON, 04/27/2019, 6:36. FINDINGS: Image quality: Excellent. Alignment and Curvature: 5 lumbar type vertebral bodies are present by plain film. There is mild, grade 1 retrolisthesis of L2 on L3 and L3 on L4. Mild grade 1 anterolisthesis of L4 on L5. Bone Marrow: Marrow is of normal overall signal. No acute vertebral body compression fractures. Mild reactive signal within the endplates adjacent to the T10-T11, T11-T12, T12-L1, L1-L2, L2-L3, L3-L4, and L4-L5 intervertebral discs. Spinal Cord: Conus medullaris terminates at the lower L2 level. Visualized cord demonstrates normal signal and size. Paraspinous Soft Tissues: No paravertebral masses. T12-L1: Mild disc desiccation and diffuse disc bulge with superimposed small right paracentral protrusion. Mild facet and ligamentum flavum hypertrophy. Mild epidural lipomatosis. Mild canal stenosis. No foraminal stenosis. No significant change. L1-L2: Mild disc desiccation and diffuse disc bulge. Mild facet and ligamentum flavum hypertrophy. Mild epidural lipomatosis. Mild canal stenosis. Mild bilateral foraminal stenosis. No significant change. L2-L3: Mild disc desiccation and diffuse disc bulge. Mild facet and ligamentum flavum hypertrophy. Mild epidural lipomatosis. Mild canal stenosis. Mild bilateral foraminal stenosis. No significant change. L3-L4: Mild disc desiccation and diffuse disc bulge. Mild facet and ligamentum flavum hypertrophy. Mild epidural lipomatosis. Mild canal stenosis. Mild bilateral foraminal stenosis. No significant change. L4-L5: Mild disc desiccation. Moderate bilateral facet hypertrophy. Mild epidural lipomatosis. Mild canal stenosis. Mild to moderate bilateral foraminal stenosis. No significant change. L5-S1: Mild bilateral facet hypertrophy. No significant canal stenosis. Mild bilateral foraminal stenosis. IMPRESSION: 1. Multilevel degenerative disc and facet disease, as well as ligamentum flavum hypertrophy and epidural lipomatosis. 2. Mild multilevel canal stenosis. 3. Multilevel foraminal stenoses, worst at L4-L5, where there are mild to moderate foraminal stenoses bilaterally. Dictated by: Doyle Hernandez M.D. on 03/11/2021 at 11:46 Approved by: Doyle Hernandez M.D. on 03/11/2021 at 11:52
== END ==
PROVIDERS: PCP Family Medicine; Referring Provider Physical Medicine & Rehabilitation Pain Medicine; Visit Provider Physical Medicine & Rehabilitation Pain Medicine
DX: M99.83 Other biomechanical lesions of lumbar region (principal); M51.36 Other intervertebral disc degeneration, lumbar region; M48.061 Spinal stenosis, lumbar region without neurogenic claudication; M48.07 Spinal stenosis, lumbosacral region; E88.2 Lipomatosis, not elsewhere classified
CPT/HCPCS: 72148

== ENCOUNTER → 2021-04-24 11:13 | Outpatient (CLI) | payer OTHER, SELFPAY | PROVIDERS: PCP Family Medicine; Visit Provider Physician Assistant | DX: N34.3 Urethral syndrome, unspecified (principal) | CPT/HCPCS: 87086 ==

== ENCOUNTER → 2021-04-28 09:53 | Outpatient (CLI) | payer OTHER, SELFPAY ==
--- NOTE | 2021-04-28 | DI.RAD.S_ITS ---
PROCEDURE: XR HAND RT MIN 3V INDICATIONS: Pain in unspecified joint TECHNIQUE: 3 views of the hand(s) acquired. COMPARISON: [facility], CR, XR HAND LT MIN 3V, 04/28/2021, 10:19. FINDINGS: Bones: No fractures or dislocations. Carpal bones are normally aligned. No suspicious bony lesions. Soft tissues: No suspicious soft tissue calcifications. IMPRESSION: No evidence acute bony abnormality of the right hand. If clinical suspicion and/or symptoms persist, further assessment with repeat plain films, or advanced imaging (e.g., CT, MRI, or bone scan) may be helpful for further assessment. Dictated by: Edenilson Herrera M.D. on 04/28/2021 at 15:39 Approved by: Edenilson Herrera M.D. on 04/28/2021 at 15:41
--- NOTE | 2021-04-28 | DI.RAD.S_ITS ---
PROCEDURE: XR FOOT RT MIN 3V INDICATIONS: Pain in unspecified joint TECHNIQUE: 3 views of the foot were acquired. COMPARISON: None. FINDINGS: Bones: No fractures or dislocations. No suspicious bony lesions. Mild periarticular osteophyte formation at the 1st metatarsophalangeal joint as well as the interphalangeal joints of the digits, tibiotalar, and talonavicular joints, indicating osteoarthritis. Soft tissues: No tibiotalar joint effusion. Achilles tendon appears normal. IMPRESSION: Osteoarthritis. No acute fracture. No osseous lesion. If symptoms and/or clinical suspicion for pathology persist, further assessment with repeat, or advanced imaging (e.g., CT, MRI, or bone scan) may be helpful for further assessment. Dictated by: Doyle Hernandez M.D. on 04/28/2021 at 16:23 Approved by: Doyle Hernandez M.D. on 04/28/2021 at 16:23
--- NOTE | 2021-04-28 | DI.RAD.S_ITS ---
PROCEDURE: XR FOOT LT MIN 3V INDICATIONS: Pain in unspecified joint TECHNIQUE: 3 views of the foot were acquired. COMPARISON: [facility], CR, XR FOOT RT MIN 3V, 04/28/2021, 10:11. FINDINGS: Bones: No fractures or dislocations. No suspicious bony lesions. Mild joint space narrowing and periarticular osteophyte formation at the tibiotalar, talonavicular, 1st metatarsophalangeal, as well as the interphalangeal joints of the digits, indicating osteoarthritis. Soft tissues: No tibiotalar joint effusion. Achilles tendon appears normal. IMPRESSION: Osteoarthritis. No acute fracture. No osseous lesion. If symptoms and/or clinical suspicion for pathology persist, further assessment with repeat, or advanced imaging (e.g., CT, MRI, or bone scan) may be helpful for further assessment. Dictated by: Doyle Hernandez M.D. on 04/28/2021 at 16:23 Approved by: Doyle Hernandez M.D. on 04/28/2021 at 16:24
--- NOTE | 2021-04-28 | DI.RAD.S_ITS ---
PROCEDURE: XR HAND LT MIN 3V INDICATIONS: ain in unspecified joint TECHNIQUE: 3 views of the hand(s) acquired. COMPARISON: None. FINDINGS: Bones: No fractures or dislocations. Carpal bones are normally aligned. No suspicious bony lesions. There is mild periarticular osteophyte formation at the 1st carpometacarpal joint, as well as the interphalangeal joints of the digits, indicating osteoarthritis. Soft tissues: No suspicious soft tissue calcifications. IMPRESSION: Osteoarthritis. No acute fracture. No osseous lesion. If symptoms and/or clinical suspicion for pathology persist, further assessment with repeat, or advanced imaging (e.g., CT, MRI, or bone scan) may be helpful for further assessment. Dictated by: Doyle Hernandez M.D. on 04/28/2021 at 16:24 Approved by: Doyle Hernandez M.D. on 04/28/2021 at 16:24
--- NOTE | 2021-04-28 10:00 | DI.CT.S_ITS ---
PROCEDURE: CT KIDNEY URETER BLADDER (KUB) INDICATIONS: hematuria with upper flank pain TECHNIQUE: Noncontrast 5 mm thick sections acquired from the diaphragms to the symphysis. 5 mm thick coronal and sagittal reformats were then performed. For radiation dose reduction, the following was used: automated exposure control, adjustment of mA and/or kV according to patient size. COMPARISON: None. FINDINGS: Image quality: Excellent. Lung bases: Lung bases are clear. Heart size is normal. Urinary system: Both kidneys are normal in size. No kidney stones. No hydronephrosis or perinephric fat stranding. Both ureters appear non-dilated throughout their expected courses. Bladder wall thickness is normal; no calcified bladder stones. Other solid organs: Liver is normal in size. Gallbladder is within normal limits.. Pancreas is normal in contours. Spleen is normal in size. No adrenal nodules. Peritoneum and bowel: Unenhanced bowel loops demonstrate normal wall thickness and caliber. No free fluid or air. Nodes and vessels: No retroperitoneal or mesenteric adenopathy by size criteria. Aorta and inferior vena cava are normal in caliber. Mild sigmoid diverticulosis is seen, no CT evidence of acute diverticulitis. Appendix is not definitively identified. No secondary signs of acute appendicitis is seen in right lower quadrant abdomen. Abdominal wall: No ventral hernias. Pelvis: No free pelvic fluid. No inguinal hernias or adenopathy. Uterus and bilateral adnexa show no gross abnormality. Bones: No suspicious bony lesions. No vertebral body compression fractures. Minimal anterolisthesis of L4 on L5 is seen. Mild degenerative endplate changes throughout lower thoracic and lumbar spine is noted. IMPRESSION: 1. No renal stone or hydronephrosis. No gross abnormality is seen in bilateral ureters and urinary bladder. 2. Sigmoid diverticulosis without evidence of acute diverticulitis. No secondary CT signs of acute appendicitis. No bowel obstruction. No free fluid or free air. Dictated by: Randell Isaac M.D. on 04/28/2021 at 10:53 Approved by: Randell Isaac M.D. on 04/28/2021 at 10:56
== END ==
PROVIDERS: PCP Family Medicine; Referring Provider Internal Medicine Rheumatology; Visit Provider Physician Assistant
DX: R31.9 Hematuria, unspecified (principal); M25.541 Pain in joints of right hand; M19.042 Primary osteoarthritis, left hand; M19.072 Primary osteoarthritis, left ankle and foot; M19.071 Primary osteoarthritis, right ankle and foot; K57.90 Diverticulosis of intestine, part unspecified, without perforation or abscess without bleeding
CPT/HCPCS: 73130; 73630; 74176

== ENCOUNTER → 2021-04-29 10:05 | Outpatient (CLI) | payer OTHER, SELFPAY ==
[2021-04-29 10:16] LABS: Bacteria Urine None Seen; RBC Urine None Seen (0-5/HPF); WBC Urine None Seen (0-5/HPF)
[2021-04-29 11:21] LABS: Appearance Urine UA CLEAR; Bilirubin Urine UA NEGATIVE (NEGATIVE); Color Urine UA YELLOW; Glucose Urine UA NEGATIVE (Negative); Ketones Urine UA NEGATIVE (NEGATIVE); Leukocyte Esterase Urine UA NEGATIVE (NEGATIVE); Nitrite Urine UA NEGATIVE (Negative); Occult Blood Urine UA NEGATIVE (Negative); Protein Urine UA NEGATIVE (Negative); Specific Gravity Urine UA 1.025 (1.000-1.035); Urobilinogen Urine UA 0.2 E.U./dL (0.2)
[2021-04-29 11:39] LABS: Culture Indicated Urine Cult Not Indicated; Urine Comments Microscopic Normal
== END ==
PROVIDERS: PCP Family Medicine; Referring Provider Nurse Practitioner Family; Visit Provider Nurse Practitioner Family
DX: R31.9 Hematuria, unspecified (principal)
CPT/HCPCS: 81001